=== PATIENT | male | born 1945 | race Caucasian/White ===

== ENCOUNTER 2021-11-03 14:15 | Inpatient (IN) | payer MEDICARE, SELFPAY ==
[2021-11-03 14:27] VITALS: BMI 34.4
--- NOTE | 2021-11-03 15:11 | PCM.HP.STD ---
Documented by User: Leann Rankin NP, AGRICULTURAL SPECIALIST-C 11/03/21 15:23 HPI - General General Date of Admission: 11/03/21 Date of Service: 11/03/21 Chief Complaint: Abdominal pain. HPI Narrative MAURILIO GOTTI, is a 76 M who presents from [facility] due to abdominal pain and nausea. Patient states this began Monday night. Patient was seen at that time and completed imaging. He was feeling improved and was discharged home however his symptoms again worsened and he returned to the emergency room for evaluation. He denies fever, chills. Reports right upper quadrant pain which radiates across his abdomen. Denies urinary symptoms. Denies other symptoms or complaints. He states he takes omeprazole for GERD. Denies other medical history. [facility] Medical History no medical history Allergy/AdvReac Type Severity Reaction Status Date / Time No Known Allergies Allergy Verified 11/03/21 16:25 Family History Mother Cancer Father Cancer Surgical History (Updated 11/03/21 @ 15:15 by Leann Rankin NP, AGRICULTURAL SPECIALIST-C) Previous back surgery Surgical History no surgical history Social History (Updated 11/03/21 @ 15:16 by Leann Rankin NP, AGRICULTURAL SPECIALIST-C) household members: spouse Smoking Status: Never smoker alcohol intake: never substance use type: does not use ROS Constitutional Constitutional: Denies change in weight, chills, fatigue, fever(s) or weakness Cardiovascular Cardiovascular: Denies chest pain, edema, lightheadedness, palpitations or syncope Respiratory/Chest Respiratory/Chest: Denies cough, dyspnea, productive cough, shortness of breath at rest, shortness of breath with exertion or wheezing Gastrointestinal Gastrointestinal: Reports abdominal pain and nausea; Denies constipation, diarrhea or vomiting Genitourinary Genitourinary: Denies burning urination, difficulty urinating, dysuria, hematuria, urinary frequency, urinary incontinence or urinary urgency Musculoskeletal Musculoskeletal: Denies back pain, joint pain or muscle weakness Integumentary Integumentary: Denies erythema, lesions, rash or wounds Neurologic Neurologic: Denies abnormal speech, confusion, dizziness, focal weakness, numbness, paresthesias, seizure-like activity or syncope Psychiatric Psychiatric: Denies anxiety or depression Hematologic/Lymphatic Hematologic/Lymphatic: Denies anemia, easy bleeding or easy bruising Allergic/Immunologic Allergic/Immunologic: Denies hives or asthma Vital Signs Vital Signs Vital Signs: 11/03/21 14:36 Respiratory Effort Normal Oxygen Delivery Method Room Air Weight Weight: 253 lb 15.56 oz Body Mass Index (BMI) 34.4 Physical Exam Const alert and oriented x3 HEENT normocephalic Mouth: dry mucous membranes Eyes PERRL, EOMs intact bilaterally and conjunctivae normal Neck no lymphadenopathy Resp normal respiratory effort and clear to auscultation bilaterally Cardio regular rate, regular rhythm and no murmurs Peripheral Pulses: pulses 2+ throughout GI normal to inspection, nondistended, normoactive bowel sounds and non-distended Palpation: tender RUQ Extremity normal to inspection Skin no rashes or lesions noted Lesions: no lesions Rashes: no rashes Trauma: no lacerations or abrasions Neuro CN's II-XII intact bilaterally, no focal motor deficits, no sensory deficits noted and deep tendon reflexes 2+ bilaterally Psych mental status grossly normal and affect normal Assessment & Plan Assessment/Plan (1) Gallstone pancreatitis: PLAN: Plan 1. Gallstone pancreatitis-gallbladder ultrasound at outside facility with gallbladder thickening and sludge. Alk phos 150. Lipase greater than 20,000. Bilirubin 2.5. Mild leukocytosis. No evidence of CBD dilation. IV Zosyn. Clear liquids. As needed pain regimen. As needed antiemetics. General surgery consult. Repeat labs in AM. 2. GERD- on omeprazole. DVT prophylaxis- Heparin sc This patient was seen by JITENDRA Aguayo under the supervision of Dr. Azevedo. Time spent examining patient, reviewing data and subsequent management of care: 26 minutes Documented by User: Dr. Keyur Azevedo DO 11/03/21 21:21 HPI - General General Date of Admission: 11/03/21 PFSH Medical History no medical history Allergy/AdvReac Type Severity Reaction Status Date / Time No Known Allergies Allergy Verified 11/03/21 16:25 Family History Mother Cancer Father Cancer Surgical History (Updated 11/03/21 @ 15:15 by Leann Rankin NP, AGRICULTURAL SPECIALIST-C) Previous back surgery Surgical History no surgical history Social History (Updated 11/03/21 @ 15:16 by Leann Rankin NP, AGRICULTURAL SPECIALIST-C) household members: spouse Smoking Status: Never smoker alcohol intake: never substance use type: does not use Assessment & Plan Assessment/Plan (1) Gallstone pancreatitis: Charges/Coding Addendum Addendum: Patient was seen and examined today independently of Leann Rankin, he was directly admitted to [place] [address] from a local hospital due to gallstone pancreatitis and acute cholecystitis. Patient states that he was seen at the emergency room on Monday for abdominal pain and nausea and vomiting, he was treated and released home but returned the next day due to persistent abdominal discomfort and nausea and vomiting. Work-up in the emergency room showed that the patient had a thickened gallbladder, ultrasound did not show evidence however of a dilated bile duct. Patient's lipase was elevated. On examination he appeared in good health and spirits. Vital signs as documented. Skin warm and dry and without overt rashes. Neck without JVD, neck was supple, trachea midline, thyroid was normal. Lungs clear bilaterally, normal air movement was noted. Heart exam notable for regular rhythm, normal sounds and absence of murmurs, rubs or gallops. Abdomen unremarkable and without evidence of organomegaly, masses, or abdominal aortic enlargement. Bowel sounds are present, abdomen is not distended. Extremities nonedematous, no cyanosis was noted, no clubbing was noted. Neuro: Cranial nerves II through XII are grossly intact, no focal motor deficits were noted, sensation to light touch and pinprick intact, motor exam 5/5 throughout. Psych: Patient is alert and oriented x3, he does not appear anxious or depressed, he does not appear agitated. Impression: #1 acute cholecystitis-patient was admitted to [place] [address], he will remain on IV antibiotics, he will be seen in consultation by general surgery. I talked with the patient and his who was in the room at the time of my examination today. #2 gallstone pancreatitis-there is no evidence of acute obstruction of the common bile duct on ultrasound, patient's liver enzymes are abnormal, lab will be repeated tomorrow morning and the patient will be evaluated by general surgery. Patient has no symptoms of abdominal discomfort at the time of my examination and his abdomen is soft and nondistended. Patient will remain on IV fluids and clear liquids. #3 GERD-patient will remain on a PPI I have reviewed Leann Rankin's history and physical including her medical assessment and plan of care and with the above additions endorse it. Total clinical time spent by myself addressing the patient's medical issues, reviewing the data, and collaborating with patient's care team: 48 minutes Visit Charges Inpatient E&M: 46634 Init Hosp L3
[2021-11-03] MEDS: 0.9% Normal Saline 1,000 ML 125 ML IV (16:18)
[2021-11-03] MEDS: Acetaminophen 325 MG Tablet 650 MG PO (17:34)
[2021-11-03 19:54] VITALS: BP 126/76; PULSE 67; RESP 18; TEMP 36.8; O2SAT 96
[2021-11-03] MEDS: Heparin Injection (Vial) 5,000 UNIT/ML VIAL 5000 UNIT SC (21:59)
[2021-11-04] VITALS (10 sets, daily range): BP systolic 129–179; BP diastolic 62–96; PULSE 57–71; RESP 16–18; TEMP 36.1–37.2; O2SAT 91–96; BMI 34.4
[2021-11-04] MEDS: 0.9% Normal Saline 1,000 ML 125 ML IV ×2 (02:27→10:23)
--- NOTE | 2021-11-04 06:00 | EKG12_ITS ---
Test Reason : PRE OP Blood Pressure : / mmHG Vent. Rate : 074 BPM Atrial Rate : 074 BPM P-R Int : 172 ms QRS Dur : 116 ms QT Int : 398 ms P-R-T Axes : 045 -32 033 degrees QTc Int : 441 ms Normal sinus rhythm Left axis deviation Abnormal ECG No previous ECGs available Confirmed by ADRY MCCORMACK, UNIQUE ([id number]), editorial intern LORI COLBERT ([id number]) on 11/05/2021 10:16:29 AM Referred By: WICHO Confirmed By:UNIQUE RIDER MD
[2021-11-04 06:09] LABS: Absolute Lymphocyte Count 1.39 X10^3/uL (0.83-4.51); Absolute Neutrophil Count 9.4 X10^3/uL (2.0-7.7); Basophil# 0.04 X10^3/uL; Basophil% 0.3 % (0-1); Eosinophil# 0.21 X10^3/uL; Eosinophils% 1.7 % (0-5); Hemoglobin 12.7 g/dL (13.0-16.5); Lymphocyte # 1.39 X10^3/ul (0.83-4.51); Lymphocyte % 11.2 % (19-41); Mean Corp Hgb Conc 33.4 g/dL (32-36); Mean Corpuscular Hgb 30.8 pg (27.0-32.0); Mean Platelet Vol. 9.8 fl (6.2-12.0); Monocyte# 1.31 X10^3/uL; Monocyte% 10.5 % (0-10); NRBC Flagged by Analyzer 0 % (0-5); Neutrophil # 9.44 X10^3/uL (2.7-7.7); Platelet Count 168 K/mm3 (150-450); RBC Distribution Width CV 14.5 % (11.6-14.6); Red Blood Count 4.13 M/mm3 (4.6-6.2); White Blood Count 12.4 K/mm3 (4.4-11.0)
[2021-11-04 06:17] LABS: Partial Thromboplast Time 31.6 Seconds (24.1-36.2)
[2021-11-04 06:38] LABS: ALB/GLOB Ratio 0.9 RATIO (0.9-2.4); AST(SGOT) 197 U/L (15-37); Alanine Aminotransfer ALT/SGPT 226 U/L (16-61); Albumin, Serum 2.7 g/dL (3.2-5.0); Alkaline Phosphatase 144 U/L (45-117); Anion Gap 6 (5-15); BUN 12 mg/dL (7-18); BUN/Creat Ratio 12.9 RATIO (10-20); Chloride 111 mmol/L (98-107); Creatinine, Serum 0.93 mg/dL (0.70-1.30); EST Glomerular Filtration Rate 84 mL/min (>60); Est Glom Filt Rate - Afr Amer 101 mL/min (>60); Estimated Creatinine Clearance 73.01 ml/min; Globulin 2.9 g/dL (2.2-4.2); Glucose 100 mg/dL (74-106); Lipase 215 U/L (73-393); Potassium 3.8 mmol/L (3.5-5.1); Protein, Total 5.6 g/dL (6.4-8.2); Sodium Level 140 mmol/L (136-145)
--- NOTE | 2021-11-04 07:44 | PN.HOSP_ITS ---
Subjective Subjective Feels good. No further abdominal pain. Complains of dark red urine. Objective Data Objective Data Vital Signs: Vital Signs Temp Pulse Resp BP Pulse Ox O2 Del Method 36.8 C 68 18 129/69 H 93 Room Air 11/04/21 02:22 11/04/21 02:22 11/04/21 02:22 11/04/21 02:22 11/04/21 02:22 11/04/21 02:22 Oxygen Delivery Method Room Air Weight: 115.2 kg Body Mass Index (BMI) 34.4 Intake & Output: Intake and Output for Last 24 Hours 11/02/21 11/03/21 11/04/21 23:59 23:59 23:59 Intake Total 50 / 50 1300 / 1300 Balance 50 / 50 1300 / 1300 Lab / Micro Data Result Diagrams: 11/04/21 05:59 11/04/21 05:59 Labs: Laboratory Results - last 24 hr 11/04/21 05:59: WBC 12.4 H, RBC 4.13 L, Hgb 12.7 L, Hct 38.0 L, MCV 92.0, MCH 30.8, MCHC 33.4, RDW Std Deviation 49.0 H, RDW Coeff of Shauna 14.5, Plt Count 168, MPV 9.8, Immature Gran % (Auto) 0.300, Neut % (Auto) 76.0 H, Lymph % (Auto) 11.2 L, [place] % (Auto) 10.5 H, Eos % (Auto) 1.7, Baso % (Auto) 0.3, Absolute Neuts (auto) 9.4 H, Absolute Lymphs (auto) 1.39, Nucleated RBC % 0 11/04/21 05:59: Sodium 140, Potassium 3.8, Chloride 111 H, Carbon Dioxide 23.0, Anion Gap 6, BUN 12, Creatinine 0.93, Estim Creat Clear Calc 73.01, Est GFR (MDRD) Af Amer 101, Est GFR (MDRD) Non-Af 84, BUN/Creatinine Ratio 12.9, Glucose 100, Calcium 8.0 L, Total Bilirubin 7.10 H, AST 197 H, ALT 226 H, Alkaline Phosphatase 144 H, Total Protein 5.6 L, Albumin 2.7 L, Globulin 2.9, Albumin/Globulin Ratio 0.9, Lipase 215 11/04/21 05:59: APTT 31.6 Physical Exam HEENT head/scalp atraumatic Resp normal respiratory effort and no retractions Cardio regular rate, regular rhythm, S1 normal heart sound and S2 normal heart sound GI normal to inspection, nondistended, normoactive bowel sounds and soft to palpation GI Narrative: negative wilson's sign. Psych affect normal Assessment & Plan Assessment/Plan (1) Gallstone pancreatitis: PLAN: Gallstone pancreatitis-gallbladder ultrasound at outside facility with gallbladder thickening and sludge. Alk phos 150. Lipase at outside hospital greater than 20,000. Now 215. Bilirubin 2.5, now up to 7.1 General surgery consult. (2) Acute cholecystitis: PLAN: on piperacillin/tazobactam general surgery consult PLAN: Plan chronic conditions: * GERD- on omeprazole. DVT prophylaxis- Heparin sc Charges/Coding Visit Charges Inpatient E&M: 10692 Subs Hosp L2
--- NOTE | 2021-11-04 08:05 | EX.PCM.CON.S ---
Assessment & Plan Assessment/Plan (1) Gallstone pancreatitis: (2) Acute cholecystitis: PLAN: Plan Patient had gallstone pancreatitis at outside hospital. His LFTs are more elevated today than they were yesterday. His bilirubin is 7 today with elevations in his AST and ALT. With increases of his LFTs I would recommend ERCP before laparoscopic cholecystectomy. I have consulted GI to perform ERCP this afternoon. As long as all goes well I will plan for laparoscopic cholecystectomy with cholangiogram tomorrow morning. I discussed laparoscopic cholecystectomy with cholangiogram in detail with the patient. I discussed the risks, benefits, and alternatives of the procedure. I discussed the risks including but not limited to bleeding, infection, injury to surrounding organs such as the liver, bile duct, bowels. I did discuss the possibility of having to convert to an open procedure as well as the possibility that if any injuries occurred this may necessitate further surgery at a tertiary care center. Roderick Amado MD Pager: [facility] [address] [place] [address], [address] [place] [address] Office: HPI Consult Data Date of Consult: 11/04/21 HPI Narrative HPI Narrative: MAURILIO GOTTI, is a 76 M who was transferred from outside hospital with gallstone pancreatitis. Patient said that he started having pain off and on about last week. He says that it came back again last night and is a problem to the emergency room. He describes pain in his upper abdominal area. It does not radiate and he did not have any fevers or chills. He did also have nausea and vomiting. [facility] Medical History no medical history Allergy/AdvReac Type Severity Reaction Status Date / Time No Known Allergies Allergy Verified 11/03/21 16:25 Family History Mother Cancer Father Cancer Surgical History (Updated 11/03/21 @ 15:15 by Leann Rankin NP, LEVEE SUPERINTENDENT-C) Previous back surgery Surgical History no surgical history Social History (Updated 11/03/21 @ 15:16 by Leann Rankin NP, LEVEE SUPERINTENDENT-C) household members: spouse Smoking Status: Never smoker alcohol intake: never substance use type: does not use ROS Constitutional Constitutional: Denies anorexia, fatigue or fever(s) Eyes Eyes: Denies blurry vision ENT HEENT: Denies abnormal hearing Cardiovascular Cardiovascular: Denies chest pain Respiratory/Chest Respiratory/Chest: Denies cough or dyspnea Gastrointestinal Gastrointestinal: Reports abdominal pain, nausea and vomiting; Denies coffee ground emesis, constipation, diarrhea or melena Genitourinary Genitourinary: Denies change in urinary stream Musculoskeletal Musculoskeletal: Denies abnormal gait Integumentary Integumentary: Denies jaundice Neurologic Neurologic: Denies dizziness Psychiatric Psychiatric: Denies anxiety Endocrine Endocrinology: Denies heat intolerance Hematologic/Lymphatic Hematologic/Lymphatic: Denies easy bleeding Physical Exam Const alert and oriented x3 General Appearance: cooperative HEENT normocephalic Eyes PERRL Chest inspection of chest normal Resp normal respiratory effort Cardio Rate: regular rate Rhythm: regular rhythm GI soft to palpation, non-tender and non-distended Extremity normal to inspection Neuro CN's II-XII intact bilaterally Psych mental status grossly normal Lab / Micro Data Result Diagrams: 11/04/21 05:59 11/04/21 05:59 Labs: Laboratory Results - last 24 hr 11/04/21 05:59: WBC 12.4 H, RBC 4.13 L, Hgb 12.7 L, Hct 38.0 L, MCV 92.0, MCH 30.8, MCHC 33.4, RDW Std Deviation 49.0 H, RDW Coeff of Shauna 14.5, Plt Count 168, MPV 9.8, Immature Gran % (Auto) 0.300, Neut % (Auto) 76.0 H, Lymph % (Auto) 11.2 L, [place] % (Auto) 10.5 H, Eos % (Auto) 1.7, Baso % (Auto) 0.3, Absolute Neuts (auto) 9.4 H, Absolute Lymphs (auto) 1.39, Nucleated RBC % 0 11/04/21 05:59: Sodium 140, Potassium 3.8, Chloride 111 H, Carbon Dioxide 23.0, Anion Gap 6, BUN 12, Creatinine 0.93, Estim Creat Clear Calc 73.01, Est GFR (MDRD) Af Amer 101, Est GFR (MDRD) Non-Af 84, BUN/Creatinine Ratio 12.9, Glucose 100, Calcium 8.0 L, Total Bilirubin 7.10 H, AST 197 H, ALT 226 H, Alkaline Phosphatase 144 H, Total Protein 5.6 L, Albumin 2.7 L, Globulin 2.9, Albumin/Globulin Ratio 0.9, Lipase 215 11/04/21 05:59: APTT 31.6
--- NOTE | 2021-11-04 09:00 | CON.PCM_ITS ---
Assessment & Plan Assessment/Plan (1) Acute cholecystitis: PLAN: He is scheduled for cholecystectomy tomorrow. I will give him a clinical diet after the procedure and he will be n.p.o. after midnight. (2) Gallstone pancreatitis: PLAN: At this time is not have any abdominal pain. Recommended continue IV fluids and n.p.o. for acute gallstone pancreatitis. (3) Jaundice: PLAN: The presumptive diagnosis is choledocholithiasis causing an acute worsening of jaundice. We will perform ERCP with evaluation of his hepatobiliary tree and possibly place a stent. He was explained alternatives, risk, benefits including outstanding bleeding, infection, sepsis, perforation, need for emergent . Have an ASA of 3. HPI Consult Data Date of Consult: 11/04/21 HPI Narrative HPI Narrative: MAURILIO GOTTI, is a 76 M who presents from [facility] due to abdominal pain and nausea. Patient states this began Monday night.? Patient was seen at that time and completed imaging.? He was feeling improved and was discharged home however his symptoms again worsened and he returned to the emergency room for evaluation.? He denies fever, chills.? He reports right upper quadrant pain which radiates across his abdomen. Denies urinary symptoms. Denies other symptoms or complaints.? He states he takes omeprazole for GERD.? Denies other medical history. Today he was noted to have an increase in his bilirubin and LFTs. I was consulted in order to perform ERCP prior to cholecystectomy. All other 16 review of systems are negative except as per body mentioned HPI. PFSH Medical History no medical history Allergy/AdvReac Type Severity Reaction Status Date / Time No Known Allergies Allergy Verified 11/03/21 16:25 Family History Mother Cancer Father Cancer Surgical History (Updated 11/03/21 @ 15:15 by Leann Rankin NP, DEAN OF STUDENT SERVICES-C) Previous back surgery Surgical History no surgical history Social History (Updated 11/03/21 @ 15:16 by Leann Rankin NP, DEAN OF STUDENT SERVICES-C) household members: spouse Smoking Status: Never smoker alcohol intake: never substance use type: does not use ROS Constitutional Constitutional: Denies anorexia, fatigue or fever(s) Eyes Eyes: Denies blurry vision ENT HEENT: Denies abnormal hearing Cardiovascular Cardiovascular: Denies chest pain Respiratory/Chest Respiratory/Chest: Denies cough or dyspnea Gastrointestinal Gastrointestinal: Reports abdominal pain, nausea and vomiting; Denies coffee ground emesis, constipation, diarrhea or melena Genitourinary Genitourinary: Denies change in urinary stream Musculoskeletal Musculoskeletal: Denies abnormal gait Integumentary Integumentary: Denies jaundice Neurologic Neurologic: Denies dizziness Psychiatric Psychiatric: Denies anxiety Endocrine Endocrinology: Denies heat intolerance Hematologic/Lymphatic Hematologic/Lymphatic: Denies easy bleeding Physical Exam Const alert and oriented x3 General Appearance: cooperative HEENT normocephalic Eyes PERRL Chest inspection of chest normal Resp normal respiratory effort Cardio Rate: regular rate Rhythm: regular rhythm GI soft to palpation, non-tender and non-distended Extremity normal to inspection Neuro CN's II-XII intact bilaterally Psych mental status grossly normal Lab / Micro Data Result Diagrams: 11/04/21 05:59 11/04/21 05:59 Labs: Laboratory Results - last 24 hr 11/04/21 05:59: WBC 12.4 H, RBC 4.13 L, Hgb 12.7 L, Hct 38.0 L, MCV 92.0, MCH 30.8, MCHC 33.4, RDW Std Deviation 49.0 H, RDW Coeff of Shauna 14.5, Plt Count 168, MPV 9.8, Immature Gran % (Auto) 0.300, Neut % (Auto) 76.0 H, Lymph % (Auto) 11.2 L, [place] % (Auto) 10.5 H, Eos % (Auto) 1.7, Baso % (Auto) 0.3, Absolute Neuts (auto) 9.4 H, Absolute Lymphs (auto) 1.39, Nucleated RBC % 0 11/04/21 05:59: Sodium 140, Potassium 3.8, Chloride 111 H, Carbon Dioxide 23.0, Anion Gap 6, BUN 12, Creatinine 0.93, Estim Creat Clear Calc 73.01, Est GFR (MDRD) Af Amer 101, Est GFR (MDRD) Non-Af 84, BUN/Creatinine Ratio 12.9, Glucose 100, Calcium 8.0 L, Total Bilirubin 7.10 H, AST 197 H, ALT 226 H, Alkaline Phosphatase 144 H, Total Protein 5.6 L, Albumin 2.7 L, Globulin 2.9, Albumin/Globulin Ratio 0.9, Lipase 215 11/04/21 05:59: APTT 31.6 Charges/Coding Visit Charges Inpatient E&M: 25302 Init Hosp L3
[2021-11-04] MEDS: Acetaminophen 325 MG Tablet 650 MG PO (10:33)
--- NOTE | 2021-11-04 11:20 | CASEMGMT ---
RN YAHAIRA GATE OPERATOR CM to room to meet with patient for initial transition planning/care coordination assessment. RN YAHAIRA introduced self and role at [facility]. Pt voices understanding and consents to assessment at this time. Pt resting in bed in no distress at this time. Pt is A/O at this time and answers all questions appropriately. Care providers, pharmacy, and demographics verified/updated at this time. PCP: Dr Elaine Specialists: none Preferred Pharmacy: [facility] retail Insurance: [employer] Prescription Benefit: Yes Living Will/HPOA: Pt does not currently have LW/HCPOA and declines info. LNOK: , Tammy Living Arrangements: Lives w/ and dtr in one-story home w/one step to enter. Independent. Transportation: Pt states drives self and states no transportation concerns at this time. also drives DME: Denies using any DME and denies needs. HHC/SNF: No history of either. No needs identified. Pt wishes to return home and states has no concerns with going home at time of discharge. CM to follow for any discharge planning/needs. Pt voices no concerns/needs at this time. Advised pt to ask for CM if any questions/concerns/needs arise. Voices understanding. PLAN: Home w/family support and discharge plans in place. [place] BYRD RN, CM
--- NOTE | 2021-11-04 16:27 | CHAPLAIN ---
Type of Pastoral Visit _x__ Initial Visit ___ Follow-up Visit ___ On-call Visit ___ General Patient Visit ___ Spiritual Assessment ___ Family Conference ___ Bereavement ___ Rapid Response ___ Code Blue ___ Other (describe below) Pastoral Care Referral From _x__ Patient ___ Family ___ Nurse ___ Physician ___ Pricing Consultant ___ [place] Instructor ___ Other (describe below) Sacrament/Intervention _x__ Active listening ___ Anointing ___ Taoist ___ Bereavement ___ Communion ___ Ciarra exploration ___ ___ Life review _x__ Prayer ___ Reconciliation ___ Sacrament of Sick ___ Supportive presence ___ Wedding ___ Other (describe below) Pastoral Comments patient welcomes prayer support prior to surgery; pt states this is first time in hospital and so expresses gratefulness; pt has a synagogue connection and ciarra is important to him
--- NOTE | 2021-11-04 17:00 | RAD_ITS ---
CLINICAL HISTORY: PAIN Date: 11/04/2021 5:13 PM Date of : 1945 Images assigned to this order were provided in conjunction with an ERCP procedure performed in the operating room/procedural suite. Please see operative report for details. Fluoroscopic images: 8 Fluoroscopic time: 71.3 seconds Cumulative dose: 1.59, mGym2; 51.30; mGy Imaging documents retrograde access to the biliary ductal system. Findings consistent with balloon sweep and placement of a stent in normal position. Refer to procedural note for complete description. IMPRESSIONS: 1. Fluoroscopic guidance for procedural planning and confirmation. Opacification of the biliary ductal system, apparent balloon sweep performed, and biliary stent placed in normal position. Electronically Signed: Bala Johnson MD at 18:36 EDT , RAD/ERCP Biliary Only IMPRESSION: undefined
--- NOTE | 2021-11-04 17:44 | OP.ERCP_ITS ---
Patient Name: Bola Small Procedure Date: 11/04/2021 4:30 PM Date of : 1945 Age: 76 Procedure: ERCP Indications: Bile duct stone(s), Suspected ascending cholangitis, Jaundice, Elevated liver enzymes Providers: Renny Roberts DO Medicines: Monitored Anesthesia Care Patient Profile: This is a 76 year old male. Refer to note in patient chart for documentation of history and physical. Patient has symptoms of acute right upper quadrant abdominal pain and acute jaundice. This patient has no history of previous ERCP. Complications: No immediate complications. Procedure: Pre-Anesthesia Assessment: - Prior to the procedure, a History and Physical was performed, and patient medications and allergies were reviewed. The patient is competent. The risks and benefits of the procedure and the sedation options and risks were discussed with the patient. All questions were answered and informed consent was obtained. Patient identification and proposed procedure were verified by the physician in the pre-procedure area. Mental Status Examination: alert and oriented. Airway Examination: normal oropharyngeal airway and neck mobility. Respiratory Examination: clear to auscultation. CV Examination: normal. Prophylactic Antibiotics: The patient does not require prophylactic antibiotics. Prior Anticoagulants: The patient has taken no previous anticoagulant or antiplatelet agents. ASA Grade Assessment: III - A patient with severe systemic disease. After reviewing the risks and benefits, the patient was deemed in satisfactory condition to undergo the procedure. The anesthesia plan was to use monitored anesthesia care (MAC). Immediately prior to administration of medications, the patient was re-assessed for adequacy to receive sedatives. The heart rate, respiratory rate, oxygen saturations, blood pressure, adequacy of pulmonary ventilation, and response to care were monitored throughout the procedure. The physical status of the patient was re-assessed after the procedure. After obtaining informed consent, the scope was passed under direct vision. Throughout the procedure, the patient's blood pressure, pulse, and oxygen saturations were monitored continuously. The Duodenoscope was introduced through the mouth, and advanced to the duodenum and used to inject contrast into the bile duct. The ERCP was accomplished without difficulty. The patient tolerated the procedure well. Scope In: 5:04:46 PM Scope Out: 5:32:23 PM Total Procedure Duration Time 0 hours 27 minutes 37 seconds Findings: The business control specialist film was normal. The esophagus was successfully intubated under direct vision. The scope was advanced to a normal major papilla in the descending duodenum without detailed examination of the pharynx, larynx and associated structures, and upper GI tract. The upper GI tract was grossly normal. The bile duct was deeply cannulated with the short-nosed traction sphincterotome. Contrast was injected. I personally interpreted the bile duct images. There was brisk flow of contrast through the ducts. Image quality was excellent. Contrast extended to the entire biliary tree. Opacification of the entire opacified area and main bile duct was successful. The maximum diameter of the ducts was 5 mm. The lower third of the main bile duct contained a single localized stenosis 3 mm in length. A straight Roadrunner wire was passed into the biliary tree. A 5 mm biliary sphincterotomy was made with a traction (standard) sphincterotome using ERBE electrocautery. Moderate bleeding from the sphincterotomy stopped within 5 minutes. The biliary tree was swept with a 12 mm balloon starting at the bifurcation. Sludge was swept from the duct. All stones were removed. Dilation of the common bile duct with a 6-7-8 mm balloon (to a maximum balloon size of 8 mm) dilator was successful. One 10 Fr by 7 cm temporary stent was placed 5 cm into the common bile duct. Bile flowed through the stent. The stent was in good position. The upper GI tract was traversed under direct vision without detailed examination. A 5 mm non-bleeding diverticulum was found in the area of the papilla. Impression: - Non-bleeding duodenal diverticulum. - A single localized biliary stricture was found in the lower third of the main bile duct. The stricture was indeterminate. - Choledocholithiasis was found. Complete removal was accomplished by biliary sphincterotomy and balloon extraction. - A biliary sphincterotomy was performed. - The biliary tree was swept. - Common bile duct was successfully dilated. - One temporary stent was placed into the common bile duct. Procedure Code(s): --- Professional --- 47351, Endoscopic retrograde cholangiopancreatography (ERCP); with placement of endoscopic stent into biliary or pancreatic duct, including pre- and post-dilation and guide wire passage, when performed, including sphincterotomy, when performed, each stent 81765, Endoscopic retrograde cholangiopancreatography (ERCP); with removal of calculi/debris from biliary/pancreatic duct(s) 83523, 26, Endoscopic catheterization of the biliary ductal system, radiological supervision and interpretation CPT copyright 2017 [employer]. All rights reserved. The codes documented in this report are preliminary and upon senior marketing specialist review may be revised to meet current compliance requirements. Renny Roberts DO 11/04/2021 5:43:46 PM This report has been signed electronically. Number of Addenda: 0 Note Initiated On: 11/04/2021 4:30 PM
[2021-11-04] MEDS: 0.9% Normal Saline 1,000 ML 200 ML IV (20:36)
[2021-11-04] MEDS: Heparin Injection (Vial) 5,000 UNIT/ML VIAL 5000 UNIT SC (22:03)
[2021-11-05] VITALS (19 sets, daily range): BP systolic 140–195; BP diastolic 62–96; PULSE 60–83; RESP 15–18; TEMP 36.4–37.1; O2SAT 90–99; BMI 34.4
--- NOTE | 2021-11-05 | LIVB_PTH ---
PATIENT: MAURILIO GOTTI LOC: MS3 U#:[id number] AGE/SX: 76/M ROOM: MA317 RE11/03/[address]: Dr. Philip Steven DO : 1945 BED: 1 DIS: 11/07/2021 SPEC #: [id number] RECD: 11/05/21 09:45 STATUS: MARTINA VERDINJack #: [id number] MERVAT: 11/05/21 00:[address]: Roderick Amado DEPT: SURGICAL PATHOLOGY RECD BY: Roxanne Ervin ENTERED: 11/05/21 10:14 SP TYPE: LIVER BX OTHR DR: DO Dr. Keyur Cortez DO Dr. Yasser Omran, MD Tissues: A - Liver, NOS B - Gallbladder, NOS Procedures: Decalcification bone/plaque Surgery Specimen Level III Surgery Specimen Level V HEADER OPERATION: Laparoscopic cholecystectomy with IOC, excision of liver mass PRE-OP DIAGNOSIS: Gallstone pancreatitis, acute cholecystitis TISSUE SUBMITTED: A ? Liver biopsy, left, B - Gallbladder MICROSCOPIC DIAGNOSIS A. Liver mass, excision: Calcified cystic fibrous nodule. Negative for malignancy. B. Gallbladder, cholecystectomy: Chronic cholecystitis. Rokitansky-Aschoff sinuses at the fundus. SJ:kaiden 11/10/2021 COMMENT No stones are identified in the container or in the gallbladder. Case has been reviewed in consultation with Dr. Lopez who concurs with the above diagnosis. IDC:AM MICROSCOPIC DESCRIPTION Slides are reviewed. GROSS DESCRIPTION A - Received fresh for frozen section diagnosis labeled with the patient's name is a specimen designated liver biopsy. The specimen consists of a piece of solid, rock-like nodule measuring 1.5 x 1.5 x 1 cm. Frozen section was canceled after talking to the surgeon, Dr. Amado. The specimen is serially sectioned and reveals cystic cut surface without any contents and submitted entirely in one cassette after decalcification. / RUBEN:kaiden 11/05/2021 B - Received is one container labeled with the patient's name and designated gallbladder. The specimen consists of a gallbladder measuring 8.5 cm in length and up to 3.5 cm in diameter. The external surface is pink-khan, smooth and glistening for the most part. Focally it is granular, hemorrhagic and contains cautery artifact. The gallbladder contains green-yellow mucoid bile. No stones are identified in the container or in the gallbladder. A small amount of sludge material is noted. A multiloculated cystic mass is noted at the fundus measuring 1 x 1 x 1 cm. The mucosa is bile-stained and without any mass lesions. The gallbladder wall measures up to 0.7 cm in thickness. Explosive Ordnance Disposal Manager sections are submitted in three cassettes as follows: 1 - gallbladder, 2 & 3 - entire cystic mass at the fundus. / RUBEN:kaiden 11/08/2021 TC:5 CPT: 94940, 15764, 07717
[2021-11-05] MEDS: 0.9% Normal Saline 1,000 ML 200 ML IV ×5 (01:41→21:17)
--- NOTE | 2021-11-05 08:16 | PN.HOSP_ITS ---
Subjective Subjective Complains of right shoulder pain post-op. Objective Data Objective Data Vital Signs: Vital Signs Temp Pulse Resp BP Pulse Ox O2 Del Method O2 Flow Rate 37.1 C 62 18 165/80 H 93 Room Air 2 11/05/21 07:07 11/05/21 07:07 11/05/21 07:07 11/05/21 07:07 11/05/21 07:07 11/05/21 07:07 11/04/21 19:05 Oxygen Flow Rate (L/min) 2 Oxygen Delivery Method Room Air Weight: 115.2 kg Body Mass Index (BMI) 34.4 Intake & Output: Intake and Output for Last 24 Hours 11/03/21 11/04/21 11/05/21 23:59 23:59 23:59 Intake Total 50 3391.67 / 3631.67 2286.67 / 2286.67 Balance 50 50 3391.67 / 3631.67 2286.67 / 2286.67 Lab / Micro Data Result Diagrams: 11/04/21 05:59 11/04/21 05:59 Radiography Diagnostic Testing: Radiology Impression ERCP X-Ray 11/04/21 17:00 IMPRESSION: undefined Physical Exam Const Constitutional Narrative: groggy. afebrile. Resp normal respiratory effort and no retractions Cardio regular rate, regular rhythm, S1 normal heart sound and S2 normal heart sound GI GI Narrative: distended. NT. hypoactive BS. Extremity normal to inspection Psych affect normal Assessment & Plan Assessment/Plan (1) Gallstone pancreatitis: PLAN: Gallstone pancreatitis-gallbladder ultrasound at outside facility with gallbladder thickening and sludge. Alk phos 150. Lipase at outside hospital greater than 20,000. Now 215. Bilirubin 2.5, now up to 7.1 General surgery consult. ERCP 11/04:Complete removal was accomplished by biliary sphincterotomy and balloon extraction. A biliary sphincterotomy was performed. The biliary tree was swept.Common bile duct was successfully dilated. One temporary stent was placed into the common bile duct. (2) Acute cholecystitis: PLAN: on piperacillin/tazobactam general surgery consult cholecystectomy 11/05 with removal of hepatic mass (sent to pathology) PLAN: Plan chronic conditions: * GERD- on omeprazole. DVT prophylaxis- Heparin sc Charges/Coding Visit Charges Inpatient E&M: 92807 Subs Hosp L2
--- NOTE | 2021-11-05 08:55 | RAD_ITS ---
STUDY: INTRAOPERATIVE CHOLANGIOGRAM. REASON FOR EXAM: Male, 76 years old. LAPAROSCOPIC, CHOLECYSTECTOMY WITH IOC FLUOROSCOPY TIME (if supplied): ( 27.8 seconds ) minutes/seconds. A cine loop loop of 139 images images was submitted. TECHNIQUE: An intraoperative glandular was performed by the surgeon. Imaging was obtained. COMPARISON: None. FINDINGS: A biliary stent is seen within the common bile duct. No flow of contrast is seen within the common bile duct. RAD/Cholangiogram/ O R,Initial IMPRESSION: Biliary stent is seen in the common bile duct. Electronically Signed: Avelino Friend MD at 9:42 EDT ,
[2021-11-05] MEDS: Bupivacaine 0.25% 30 ML Vial (09:45)
--- NOTE | 2021-11-05 09:54 | OP.PCM_ITS ---
Report of Operation Date of Procedure: 11/05/21 Pre-Operative Diagnosis: Acute cholecystitis and gallstone pancreatitis Post-Operative Diagnosis: 1. Acute cholecystitis 2. Gallstone pancreatitis 3. Liver mass Surgery/Procedure Performed:: 1. Laparoscopic cholecystectomy with cholangiogram 2. Excision of liver mass Description of Surgical Findings:: Very firm mass medial to the gallbladder in the liver Specimen's removed: 1. Gallbladder 2. Liver mass Description of Procedure: After obtaining informed consent patient was brought back to the operating room. General anesthesia was induced. The abdomen was prepped and draped in usual sterile fashion. A small midline incision was made superior to the umbilicus and deepened to the level of fascia. The fascia was elevated and incised. Next the peritoneum was elevated and incised in the same fashion. Finger sweep was performed and the Mcrae trocar was placed into the abdomen. The balloon was inflated. The abdomen was inflated to 15 mmHg. Next a camera was introduced into the abdomen and the abdomen was inspected. Next under direct visualization three 5-mm ports were placed one subxiphoid and 2 subcostal. Next the gallbladder was elevated and retracted toward the right shoulder. The peritoneum was stripped from the gallbladder. The infundibulum was located and retracted laterally. Next the triangle of Calot was dissected and the cystic duct and cystic artery were identified. Cholangiograms were performed. The Lu clamp was used to clamp across the infundibulum and the catheter needle was inserted into the gallbladder. Under fluoroscopy contrast was instilled into the gallbladder and the common duct, cystic duct as well as proximal hepatic ducts were identified. There was good filling of the duodenum. There were no filling defects noted in the common bile duct. The clamp was removed as well as the needle and the infundibulum was grasped once more. Three hemolock c lips were placed across the cystic duct. The cystic duct was then divided leaving 2 clips on the stump. The cystic artery was clipped and divided in the same fashion. The hook cautery was then used to take the gallbladder off of the gallbladder bed. Hemostasis was obtained. The liver mass was just medial to the gallbladder fossa. It did not appear to communicate with the gallbladder and there was a good plane of fat between the gallbladder and this mass. The mass was grasped and excised using electrocautery to remove it and dissected free from the liver. It was sent for pathology. Gallbladder fossa was irrigated and no active bleeding or bile leakage was noted. Next the camera was introduced in the subxiphoid port. An Endopouch bag was placed through the umbilical port and the gallbladder was placed into it. The gallbladder was then removed through the umbilical incision. The camera was then reinserted through the umbilical port. The gallbladder fossa was inspected once more and noted to be hemostatic with no leaking bile. The abdomen was suctioned dry. The 5 mm ports were removed under direct visualization. The umbilical port was then removed and the air was removed from the abdomen. Next using an 0 Vicryl suture the umbilical fascia was closed in a [id number] fashion. The umbilical port site was irrigated local anesthetic was administered to all the incisions. All the incisions were closed with interrupted subcuticular 4-0 Monocryl sutures followed by Steri-Strips and dressings. The patient was awoken and taken to PACU in stable condition. Admit VTE Documentation VTE Mechan Device Prophylaxis: SCD's
--- NOTE | 2021-11-05 09:57 | DCINST_ITS ---
Discharge Instructions Diet Discharge Diet: Light diet - advance as tolerated Activity Discharge Activity: May Not Drive (for 2-3 days or while on narcotics) and May Shower (tomorrow) Lifting Restrictions: 15 lbs for 2 weeks Dressing / Incision Call your doctor if your incision/area has: Continuous Slow Oozing, Sudden Increased Bleeding, Increased Pain/ Swelling, Increased Redness, Foul Smelling Discharge and Swelling at the incision site Call your doctor if you observe: Fever of 101 or Higher Remove Dressing in: 2 days (Remove bandage in 2 days, remove Steri-Strips in 7 to 10 days.) Cleanse incision/area with: Soap & Water Follow Up Care Please Follow Up With: Roderick Amado MD When: Please call to schedule 2 week follow up appointment. [phone] Test Results: Test results from this visit will be discussed in further detail at your follow- up appointment, if applicable. Discharge Plan Admission Admit Date/Time: 11/03/21 15:22 Attending Provider: Philip Steven Primary Care Provider: Je Elaine Consulting Providers: Roderick Amado ; Keyur Azevedo Discharge Orders/Prescriptions Referrals / Follow Up: Je Elaine MD [Primary Care Provider] -
--- NOTE | 2021-11-05 11:34 | NURSING ---
Pt was already off the floor this morning before 0730.
[2021-11-05] MEDS: Morphine 2 MG/ML Syringe IV (13:23)
[2021-11-05] MEDS: 0.9% Saline Lock 10 ML Syringe IV (13:24)
[2021-11-05] MEDS: Acetaminophen 325 MG Tablet 650 MG PO (16:29)
[2021-11-05] MEDS: Lisinopril 20 MG Tablet PO (17:21)
[2021-11-05] MEDS: Heparin Injection (Vial) 5,000 UNIT/ML VIAL 5000 UNIT SC (20:59)
[2021-11-06 01:44] VITALS: BP 144/76; PULSE 78; RESP 18; TEMP 36.8; O2SAT 93
[2021-11-06] MEDS: 0.9% Normal Saline 1,000 ML 200 ML IV ×2 (02:18→07:25)
[2021-11-06 05:44] VITALS: BP 162/77; PULSE 78; RESP 16; TEMP 37.1; O2SAT 96
[2021-11-06 06:14] LABS: Absolute Lymphocyte Count 2.33 X10^3/uL (0.83-4.51); Absolute Neutrophil Count 16.1 X10^3/uL (2.0-7.7); Basophil# 0.04 X10^3/uL; Basophil% 0.2 % (0-1); Eosinophil# 0.01 X10^3/uL; Hematocrit 38.9 % (40-54); Hemoglobin 12.7 g/dL (13.0-16.5); Lymphocyte # 2.33 X10^3/ul (0.83-4.51); Lymphocyte % 11.5 % (19-41); Mean Corp Hgb Conc 32.6 g/dL (32-36); Mean Corpuscular Hgb 30.2 pg (27.0-32.0); Mean Corpuscular Volume 92.6 fL (80-94); Mean Platelet Vol. 9.8 fl (6.2-12.0); Monocyte# 1.66 X10^3/uL; Monocyte% 8.2 % (0-10); NRBC Flagged by Analyzer 0 % (0-5); Neutrophil # 16.06 X10^3/uL (2.7-7.7); Neutrophil % 79.1 % (47-70); POSITIVE DIFFERENTIAL YES; Platelet Count 221 K/mm3 (150-450); RBC Distribution Width SD 50.9 fl (35.1-43.9); White Blood Count 20.3 K/mm3 (4.4-11.0)
[2021-11-06 06:32] LABS: Differential Indicated SCAN CRITERIA MET
[2021-11-06 06:49] LABS: Differential Comment SCANNED
[2021-11-06 06:51] LABS: Anion Gap 5 (5-15); BUN 14 mg/dL (7-18); BUN/Creat Ratio 19.6 RATIO (10-20); Calcium,Total 8.1 mg/dL (8.5-10.1); Chloride 112 mmol/L (98-107); Creatinine, Serum 0.72 mg/dL (0.70-1.30); EST Glomerular Filtration Rate 113 mL/min (>60); Est Glom Filt Rate - Afr Amer 137 mL/min (>60); Glucose 100 mg/dL (74-106); Sodium Level 140 mmol/L (136-145)
--- NOTE | 2021-11-06 07:16 | PN.HOSP_ITS ---
Subjective Subjective Positive flatus. Notes swelling in upper extremities. Feels short of breath but on room air. Objective Data Objective Data Vital Signs: Vital Signs Temp Pulse Resp BP Pulse Ox O2 Del Method O2 Flow Rate 37.1 C 78 16 162/77 H 96 Nasal Cannula 2 11/06/21 05:44 11/06/21 05:44 11/06/21 05:44 11/06/21 05:44 11/06/21 05:44 11/06/21 05:44 11/06/21 05:44 Oxygen Flow Rate (L/min) 2 Oxygen Delivery Method Nasal Cannula Weight: 115.2 kg Body Mass Index (BMI) 34.4 Intake & Output: Intake and Output for Last 24 Hours 11/04/21 11/05/21 11/06/21 23:59 23:59 23:59 Intake Total 3391.67 / 3631.67 5810.00 / 5810.00 1000 / 1000 Balance 3391.67 / 3631.67 5810.00 / 5810.00 1000 / 1000 Lab / Micro Data Result Diagrams: 11/06/21 05:53 11/06/21 05:53 Labs: Laboratory Results - last 24 hr 11/06/21 05:53: WBC 20.3 H, RBC 4.20 L, Hgb 12.7 L, Hct 38.9 L, MCV 92.6, MCH 30.2, MCHC 32.6, RDW Std Deviation 50.9 H, RDW Coeff of Shauna 15.0 H, Plt Count 221, MPV 9.8, Immature Gran % (Auto) 1.000 H, Neut % (Auto) 79.1 H, Lymph % (Auto) 11.5 L, Barnes % (Auto) 8.2, Eos % (Auto) 0.0, Baso % (Auto) 0.2, Absolute Neuts (auto) 16.1 H, Absolute Lymphs (auto) 2.33, Nucleated RBC % 0, Differential Comment SCANNED, Diff Path Review June11/06/21 05:53: Sodium 140, Potassium 4.0, Chloride 112 H, Carbon Dioxide 23.0, Anion Gap 5, BUN 14, Creatinine 0.72, Estim Creat Clear Calc 67.90, Est GFR (MDRD) Af Amer 137, Est GFR (MDRD) Non-Af 113, BUN/Creatinine Ratio 19.6, Glucose 100, Calcium 8.1 L Radiography Diagnostic Testing: Radiology Impression Cholangiogram 11/05/21 08:55 IMPRESSION: Biliary stent is seen in the common bile duct. Electronically Signed: Avelino Friend MD at 9:42 EDT , Physical Exam Const alert and no apparent distress Resp normal respiratory effort, no retractions, no use of accessory muscles and clear to auscultation bilaterally Cardio regular rate, regular rhythm, S1 normal heart sound and S2 normal heart sound GI GI Narrative: Distended. Hyperactive bowel sounds Extremity General Extremity: edema bilateral upper extremity trace and lower extremity Details: trace Neuro oriented x3 Assessment & Plan Assessment/Plan (1) Gallstone pancreatitis: PLAN: Gallstone pancreatitis-gallbladder ultrasound at outside facility with gallbladder thickening and sludge. Alk phos 150. Lipase at outside hospital greater than 20,000. Now 215. Bilirubin 2.5, now up to 7.1 General surgery consult. ERCP 11/04:Complete removal was accomplished by biliary sphincterotomy and balloon extraction. A biliary sphincterotomy was performed. The biliary tree was swept.Common bile duct was successfully dilated. One temporary stent was placed into the common bile duct. Advance diet per general surgery Add incentive spirometer (2) Acute cholecystitis: PLAN: on piperacillin/tazobactam general surgery consult cholecystectomy 11/05 with removal of hepatic mass (sent to pathology) (3) HTN (hypertension): PLAN: started on lisiopril 20 on 11/05 still elevated Would not aggressively lower given recent surgery and discomfort as his BP may drop when the acute distress resolves. PLAN: Plan chronic conditions: * GERD- on omeprazole. DVT prophylaxis- Heparin sc Charges/Coding Visit Charges Inpatient E&M: 59329 Subs Hosp L2
--- NOTE | 2021-11-06 08:22 | PN.SURG_ITS ---
Subjective Subjective Patient reports tolerating clears. No nausea or vomiting. Pain is well controlled. Objective Data Objective Data Vital Signs: Vital Signs Temp Pulse Resp BP Pulse Ox O2 Del Method O2 Flow Rate 98.7 F 78 16 162/77 H 96 Nasal Cannula 2 11/06/21 05:44 11/06/21 05:44 11/06/21 05:44 11/06/21 05:44 11/06/21 05:44 11/06/21 05:44 11/06/21 05:44 Oxygen Flow Rate (L/min) 2 Oxygen Delivery Method Nasal Cannula Weight: 253 lb 15.56 oz Body Mass Index (BMI) 34.4 Intake & Output: Intake and Output for Last 24 Hours 11/04/21 11/05/21 11/06/21 23:59 23:59 23:59 Intake Total 3391.67 / 3631.67 5810.00 / 5810.00 1999 Balance 3391.67 / 3631.67 5810.00 / 5810.00 1999 Lab / Micro Data Result Diagrams: 11/06/21 05:53 11/06/21 05:53 Labs: Laboratory Results - last 24 hr 11/06/21 05:53: WBC 20.3 H, RBC 4.20 L, Hgb 12.7 L, Hct 38.9 L, MCV 92.6, MCH 30.2, MCHC 32.6, RDW Std Deviation 50.9 H, RDW Coeff of Shauna 15.0 H, Plt Count 221, MPV 9.8, Immature Gran % (Auto) 1.000 H, Neut % (Auto) 79.1 H, Lymph % (Auto) 11.5 L, [place] % (Auto) 8.2, Eos % (Auto) 0.0, Baso % (Auto) 0.2, Absolute Neuts (auto) 16.1 H, Absolute Lymphs (auto) 2.33, Nucleated RBC % 0, Differen tial Comment SCANNED, Diff Path Review May 11/06/21 05:53: Sodium 140, Potassium 4.0, Chloride 112 H, Carbon Dioxide 23.0, Anion Gap 5, BUN 14, Creatinine 0.72, Estim Creat Clear Calc 67.90, Est GFR (MDRD) Af Amer 137, Est GFR (MDRD) Non-Af 113, BUN/Creatinine Ratio 19.6, Glucose 100, Calcium 8.1 L Radiography Diagnostic Testing: Radiology Impression Cholangiogram 11/05/21 08:55 IMPRESSION: Biliary stent is seen in the common bile duct. Electronically Signed: Avelino Friend MD at 9:42 EDT , Physical Exam Const oriented x3 GI soft to palpation Palpation: tender Assessment & Plan Assessment/Plan (1) Gallstone pancreatitis: (2) Acute cholecystitis: PLAN: Plan The patient tolerated clears and I will advance him to a regular diet. His white count did rise to 20 today which is a little worrisome and I would probably recommend waiting on discharge until tomorrow. Patient had a small mass adjacent to the gallbladder which was also removed and pathology is pending. Roderick Amado MD Pager: [facility] [address] [place] [address] [address] [place] [address] Office:
[2021-11-06 09:44] VITALS: BP 174/86; PULSE 85; RESP 18; TEMP 37.7; O2SAT 92
[2021-11-06] MEDS: Lisinopril 20 MG Tablet PO (10:19)
[2021-11-06] MEDS: Heparin Injection (Vial) 5,000 UNIT/ML VIAL 5000 UNIT SC ×2 (10:20→21:33)
[2021-11-06] MEDS: Morphine 2 MG/ML Syringe IV (10:26)
[2021-11-06] MEDS: oxyCODONE 5 MG Tablet PO (10:58)
[2021-11-06] MEDS: 0.9% Saline Lock 10 ML Syringe IV (10:59)
[2021-11-06 14:56] VITALS: BP 169/84; PULSE 82; RESP 18; TEMP 36.9; O2SAT 98
[2021-11-06] MEDS: Acetaminophen 325 MG Tablet 650 MG PO (15:07)
[2021-11-06 20:35] VITALS: BP 175/85; PULSE 76; RESP 18; TEMP 36.8; O2SAT 96
--- NOTE | 2021-11-06 21:15 | RAD_ITS ---
EXAM: XR CHEST, 2 VIEWS CLINICAL INDICATION: sob TECHNIQUE: Frontal and lateral views of the chest. This report was created using [employer] report generation technology. COMPARISON: 11/01/2021. FINDINGS: LUNGS AND PLEURAL SPACES: Discoid atelectasis at the lower lungs bilaterally. Bilateral small pleural effusions with adjacent passive atelectasis. No pneumothorax. HEART: Unremarkable. Cardiac silhouette not enlarged. MEDIASTINUM: No other definite mediastinal abnormalities. BONES/JOINTS: Degenerative changes of the spine and acromioclavicular joints bilaterally. SOFT TISSUES: Unremarkable. LYMPH NODES: Fullness of the right hilar region may represent reactive adenopathy. RAD/Chest PA and Lateral IMPRESSION: Small pleural effusions bilaterally with adjacent passive atelectasis. Electronically Signed: Too Rodriguez MD at 22:29 EDT ,
[2021-11-06 21:33] LABS: BNP,B-Type NATRIURETIC PEPTIDE 208.8 pg/mL (0-100)
[2021-11-06 21:55] VITALS: BP 175/85; PULSE 76; RESP 18; TEMP 36.8; O2SAT 96
--- NOTE | 2021-11-06 22:48 | PCM.PN.BLA ---
Progress Note Lasix 40mg IVP x1 for edema and pleural effusion.
[2021-11-06] MEDS: Furosemide 40 MG/4 ML Vial IV (22:55)
[2021-11-07] VITALS (7 sets, daily range): BP systolic 123–167; BP diastolic 68–76; PULSE 64–94; RESP 16–18; TEMP 36.6–37.3; O2SAT 93–95
[2021-11-07] MEDS: hydrALAZINE 20 MG/ML Vial 5 MG IV (06:16)
[2021-11-07] MEDS: 0.9% Saline Lock 10 ML Syringe IV (06:17)
[2021-11-07 06:30] LABS: Absolute Lymphocyte Count 3.22 X10^3/uL (0.83-4.51); Absolute Neutrophil Count 11.2 X10^3/uL (2.0-7.7); Basophil# 0.06 X10^3/uL; Basophil% 0.4 % (0-1); Eosinophil# 0.14 X10^3/uL; Eosinophils% 0.8 % (0-5); Hematocrit 39.4 % (40-54); Hemoglobin 13.3 g/dL (13.0-16.5); Lymphocyte # 3.22 X10^3/ul (0.83-4.51); Lymphocyte % 19.5 % (19-41); Mean Corp Hgb Conc 33.8 g/dL (32-36); Mean Corpuscular Hgb 30.9 pg (27.0-32.0); Mean Corpuscular Volume 91.4 fL (80-94); Mean Platelet Vol. 9.9 fl (6.2-12.0); Monocyte# 1.76 X10^3/uL; Monocyte% 10.7 % (0-10); NRBC Flagged by Analyzer 0 % (0-5); Neutrophil # 11.23 X10^3/uL (2.7-7.7); Neutrophil % 67.9 % (47-70); POSITIVE DIFFERENTIAL YES; Platelet Count 218 K/mm3 (150-450); RBC Distribution Width CV 14.8 % (11.6-14.6); RBC Distribution Width SD 50.2 fl (35.1-43.9); Red Blood Count 4.31 M/mm3 (4.6-6.2); White Blood Count 16.5 K/mm3 (4.4-11.0)
[2021-11-07 06:34] LABS: Differential Indicated SCAN CRITERIA MET
[2021-11-07 06:54] LABS: Differential Comment SCANNED
[2021-11-07 06:59] LABS: ALB/GLOB Ratio 0.7 RATIO (0.9-2.4); AST(SGOT) 62 U/L (15-37); Alanine Aminotransfer ALT/SGPT 94 U/L (16-61); Albumin, Serum 2.5 g/dL (3.2-5.0); Alkaline Phosphatase 192 U/L (45-117); Anion Gap 8 (5-15); BUN 13 mg/dL (7-18); BUN/Creat Ratio 15.1 RATIO (10-20); Calcium,Total 8.2 mg/dL (8.5-10.1); Chloride 106 mmol/L (98-107); Creatinine, Serum 0.86 mg/dL (0.70-1.30); EST Glomerular Filtration Rate 91 mL/min (>60); Est Glom Filt Rate - Afr Amer 111 mL/min (>60); Estimated Creatinine Clearance 78.95 ml/min; Globulin 3.6 g/dL (2.2-4.2); Glucose 90 mg/dL (74-106); Potassium 3.2 mmol/L (3.5-5.1); Protein, Total 6.1 g/dL (6.4-8.2); Sodium Level 139 mmol/L (136-145)
--- NOTE | 2021-11-07 07:09 | PN.SURG_ITS ---
Subjective Subjective Patient reports tolerating regular diet and passing flatus. Denies abdominal pain. Objective Data Objective Data Vital Signs: Vital Signs Temp Pulse Resp BP Pulse Ox O2 Del Method O2 Flow Rate 97.9 F 78 16 167/74 H 95 Room Air 2 11/07/21 06:00 11/07/21 06:16 11/07/21 06:00 11/07/21 06:16 11/07/21 06:00 11/07/21 06:00 11/07/21 03:05 Oxygen Flow Rate (L/min) 2 Oxygen Delivery Method Room Air Weight: 253 lb 15.56 oz Body Mass Index (BMI) 34.4 Intake & Output: Intake and Output for Last 24 Hours 11/05/21 11/06/21 11/07/21 23:59 23:59 23:59 Intake Total 5810.00 / 5810.00 3240.00 / 3540.00 500 / 500 Output Total 2300 / 2300 Balance 5810.00 / 5810.00 3240.00 / 2340.00 -1800 / -1800 Lab / Micro Data Result Diagrams: 11/07/21 06:00 11/07/21 06:00 Labs: Laboratory Results - last 24 hr 11/06/21 05:53: B-Natriuretic Peptide 208.8 H 11/07/21 06:00: WBC 16.5 H, RBC 4.31 L, Hgb 13.3, Hct 39.4 L, MCV 91.4, MCH 30.9, MCHC 33.8, RDW Std Deviation 50.2 H, RDW Coeff of Shauna 14.8 H, Plt Count 218, MPV 9.9, Immature Gran % (Auto) 0.700, Neut % (Auto) 67.9, Lymph % (Auto) 19.5, [place] % (Auto) 10.7 H, Eos % (Auto) 0.8, Baso % (Auto) 0.4, Absolute Neuts (auto) 11.2 H, Absolute Lymphs (auto) 3.22, Nucleated RBC % 0, Differential Comment SCANNED, Diff Path Review June11/07/21 06:00: Sodium 139, Potassium 3.2 L, Chloride 106, Carbon Dioxide 25.0, Anion Gap 8, BUN 13, Creatinine 0.86, Estim Creat Clear Calc 78.95, Est GFR (MDRD) Af Amer 111, Est GFR (MDRD) Non-Af 91, BUN/Creatinine Ratio 15.1, Glucose 90, Calcium 8.2 L, Total Bilirubin 4.00 H, AST 62 H, ALT 94 H, Alkaline Phosphatase 192 H, Total Protein 6.1 L, Albumin 2.5 L, Globulin 3.6, Albumin/Globulin Ratio 0.7 L Radiography Diagnostic Testing: Radiology Impression Chest X-Ray 11/06/21 21:15 IMPRESSION: Small pleural effusions bilaterally with adjacent passive atelectasis. Electronically Signed: Too Rodriguez MD at 22:29 EDT , Assessment & Plan Assessment/Plan (1) Acute cholecystitis: PLAN: Patient seems to be doing well. His white count is coming down and his left shift has resolved. His LFTs are slowly improving. I believe the patient is okay for discharge. Patient will follow-up with me in 2 weeks. DC instructions have been filled out. Roderick Amado MD Pager: [facility] [address] [place] [address], [address] [place] [address] Office:
--- NOTE | 2021-11-07 08:41 | PCM.PROGNOTE ---
Subjective Subjective Patient underwent laparoscopic cholecystectomy and a hard mass was seen on laparoscopic evaluation near the gallbladder fossa. He does not have any abdominal pain. Objective Data Objective Data Vital Signs: Vital Signs Temp Pulse Resp BP Pulse Ox O2 Del Method O2 Flow Rate 97.9 F 78 16 167/74 H 95 Room Air 2 11/07/21 06:00 11/07/21 06:16 11/07/21 06:00 11/07/21 06:16 11/07/21 06:00 11/07/21 06:00 11/07/21 03:05 Oxygen Flow Rate (L/min) 2 Oxygen Delivery Method Room Air Weight: 253 lb 15.56 oz Body Mass Index (BMI) 34.4 Intake & Output: Intake and Output for Last 24 Hours 11/05/21 11/06/21 11/07/21 23:59 23:59 23:59 Intake Total 5810.00 / 5810.00 3240.00 / 3540.00 500 / 500 Output Total 2300 / 2300 Balance 5810.00 / 5810.00 3240.00 / 2340.00 -1800 / -1800 Lab / Micro Data Result Diagrams: 11/07/21 06:00 11/07/21 06:00 Labs: Laboratory Results - last 24 hr 11/06/21 05:53: B-Natriuretic Peptide 208.8 H 11/07/21 06:00: WBC 16.5 H, RBC 4.31 L, Hgb 13.3, Hct 39.4 L, MCV 91.4, MCH 30.9, MCHC 33.8, RDW Std Deviation 50.2 H, RDW Coeff of Shauna 14.8 H, Plt Count 218, MPV 9.9, Immature Gran % (Auto) 0.700, Neut % (Auto) 67.9, Lymph % (Auto) 19.5, [place] % (Auto) 10.7 H, Eos % (Auto) 0.8, Baso % (Auto) 0.4, Absolute Neuts (auto) 11.2 H, Absolute Lymphs (auto) 3.22, Nucleated RBC % 0, Differential Comment SCANNED, Diff Path Review June11/07/21 06:00: Sodium 139, Potassium 3.2 L, Chloride 106, Carbon Dioxide 25.0, Anion Gap 8, BUN 13, Creatinine 0.86, Estim Creat Clear Calc 78.95, Est GFR (MDRD) Af Amer 111, Est GFR (MDRD) Non-Af 91, BUN/Creatinine Ratio 15.1, Glucose 90, Calcium 8.2 L, Total Bilirubin 4.00 H, AST 62 H, ALT 94 H, Alkaline Phosphatase 192 H, Total Protein 6.1 L, Albumin 2.5 L, Globulin 3.6, Albumin/Globulin Ratio 0.7 L Radiography Diagnostic Testing: Radiology Impression Chest X-Ray 11/06/21 21:15 IMPRESSION: Small pleural effusions bilaterally with adjacent passive atelectasis. Electronically Signed: Too Rodriguez MD at 22:29 EDT , Physical Exam Const oriented x3 GI soft to palpation Palpation: tender Assessment & Plan Assessment/Plan (1) Gallstone pancreatitis: PLAN: Gallstone pancreatitis resolved status post ERCP with debris removal. (2) Jaundice: PLAN: Jaundice likely secondary to extrinsic compression of the common bile duct. He is status post ERCP with stent placement. His LFTs are improving as is his white blood cell count. He will need to follow-up in the clinic for stent removal or exchange in the future. Charges/Coding Visit Charges Inpatient E&M: 10768 Subs Hosp L2
--- NOTE | 2021-11-07 09:19 | PCM.PN.HOSP ---
Subjective Subjective Feels well. Tolerating diet. Positive flatus. No shortness of breath. Objective Data Objective Data Vital Signs: Vital Signs Temp Pulse Resp BP Pulse Ox O2 Del Method O2 Flow Rate 36.6 C 78 16 167/74 H 95 Room Air 2 11/07/21 06:00 11/07/21 06:16 11/07/21 06:00 11/07/21 06:16 11/07/21 06:00 11/07/21 06:00 11/07/21 03:05 Oxygen Flow Rate (L/min) 2 Oxygen Delivery Method Room Air Weight: 115.2 kg Body Mass Index (BMI) 34.4 Intake & Output: Intake and Output for Last 24 Hours 11/05/21 11/06/21 11/07/21 23:59 23:59 23:59 Intake Total 5810.00 / 5810.00 3240.00 / 3540.00 500 / 500 Output Total 2300 / 2300 Balance 5810.00 / 5810.00 3240.00 / 2340.00 -1800 / -1800 Lab / Micro Data Result Diagrams: 11/07/21 06:00 11/07/21 06:00 Labs: Laboratory Results - last 24 hr 11/06/21 05:53: B-Natriuretic Peptide 208.8 H 11/07/21 06:00: WBC 16.5 H, RBC 4.31 L, Hgb 13.3, Hct 39.4 L, MCV 91.4, MCH 30.9, MCHC 33.8, RDW Std Deviation 50.2 H, RDW Coeff of Shauna 14.8 H, Plt Count 218, MPV 9.9, Immature Gran % (Auto) 0.700, Neut % (Auto) 67.9, Lymph % (Auto) 19.5, [place] % (Auto) 10.7 H, Eos % (Auto) 0.8, Baso % (Auto) 0.4, Absolute Neuts (auto) 11.2 H, Absolute Lymphs (auto) 3.22, Nucleated RBC % 0, Differential Comment SCANNED, Diff Path Review June11/07/21 06:00: Sodium 139, Potassium 3.2 L, Chloride 106, Carbon Dioxide 25.0, Anion Gap 8, BUN 13, Creatinine 0.86, Estim Creat Clear Calc 78.95, Est GFR (MDRD) Af Amer 111, Est GFR (MDRD) Non-Af 91, BUN/Creatinine Ratio 15.1, Glucose 90, Calcium 8.2 L, Total Bilirubin 4.00 H, AST 62 H, ALT 94 H, Alkaline Phosphatase 192 H, Total Protein 6.1 L, Albumin 2.5 L, Globulin 3.6, Albumin/Globulin Ratio 0.7 L Radiography Diagnostic Testing: Radiology Impression Chest X-Ray 11/06/21 21:15 IMPRESSION: Small pleural effusions bilaterally with adjacent passive atelectasis. Electronically Signed: Too Rodriguez MD at 22:29 EDT , Physical Exam Resp normal respiratory effort, no retractions, no use of accessory muscles and clear to auscultation bilaterally Cardio regular rate, regular rhythm, S1 normal heart sound and S2 normal heart sound GI GI Narrative: Distended. Nontender Auscultation: hyperactive bowel sounds Extremity General Extremity: edema bilateral upper extremity trace and lower extremity Details: trace Assessment & Plan Assessment/Plan (1) Gallstone pancreatitis: PLAN: Gallstone pancreatitis-gallbladder ultrasound at outside facility with gallbladder thickening and sludge. Alk phos 150. Lipase at outside hospital greater than 20,000. Now 215. Bilirubin 2.5, now up to 7.1 General surgery consult. ERCP 11/04:Complete removal was accomplished by biliary sphincterotomy and balloon extraction. A biliary sphincterotomy was performed. The biliary tree was swept.Common bile duct was successfully dilated. One temporary stent was placed into the common bile duct. Advance diet per general surgery Add incentive spirometer Follow up with GI for stent removeal (2) Acute cholecystitis: PLAN: general surgery consult cholecystectomy 11/05 with removal of hepatic mass (sent to pathology) Follow up with general surgery (3) HTN (hypertension): PLAN: started on lisiopril 20 on 11/05 still elevated Would not aggressively lower given recent surgery and discomfort as his BP may drop when the acute distress resolves. PLAN: Plan chronic conditions: GERD- on omeprazole. Discharge home
[2021-11-07] MEDS: Lisinopril 20 MG Tablet PO (10:04)
[2021-11-07] MEDS: Heparin Injection (Vial) 5,000 UNIT/ML VIAL 5000 UNIT SC (10:04)
--- NOTE | 2021-11-07 10:23 | DCINST_ITS ---
Discharge Instructions Diet Discharge Diet: Light diet - advance as tolerated Dressing / Incision Call your doctor if your incision/area has: Continuous Slow Oozing, Sudden Increased Bleeding, Increased Pain/ Swelling, Increased Redness, Foul Smelling Discharge and Swelling at the incision site Call your doctor if you observe: Fever of 101 or Higher Cleanse incision/area with: Soap & Water Follow Up Care Please Follow Up With: Roderick Amado MD Test Results: Test results from this visit will be discussed in further detail at your follow- up appointment, if applicable. Discharge Plan Admission Admit Date/Time: 11/03/21 15:22 Primary Reason for Your Visit: pancreatitis. cholecystitis Attending Provider: hPilip Steven Primary Care Provider: Je Elaine Consulting Providers: Roderick Amado ; Keyur Azevedo Discharge Orders/Prescriptions Prescriptions: New lisinopril 20 mg Tablet 20 mg PO DAILY Qty: 30 0RF oxycodone 5 mg Tablet 5 mg PO Q6H PRN PRN (Reason: Pain Score 4-10) 3 Days Qty: 12 0RF acetaminophen 500 mg capsule 1,000 mg PO Q6H PRN (Reason: pain) Qty: 20 0RF Referrals / Follow Up: Roderick Amado MD [Med Staff - Active Staff] - Within 2 Weeks Renny Roberts DO [Med Staff - Active Staff] - Within 3 Months Je Elaine MD [Primary Care Provider] - Within 2 Weeks Disposition Disposition (needs filled in before D/C Order can be placed): Home, Self Care
--- NOTE | 2021-11-07 10:29 | PCM.DC.SUM ---
Providers Date of Admission: 11/03/21 Primary Care Physician: Dr. Je Elaine MD Consultations 11/03/21 15:46 Consult: General Surgery Routine Consulting Provider: Roderick Amado Reason for Consult: Gallstone pancreatitis EMERGENT Consult: No Notified: Yes Date Notified: 11/03/21 Time Notified: 15:25 Method of Notification: Verbal 11/04/21 08:05 Consult: Gastroenterology Routine Consulting Provider: [facility] Reason for Consult: ERCP EMERGENT Consult: No Notified: Yes Date Notified: 11/04/21 Time Notified: 08:05 Method of Notification: Verbal Reason For Visit: GALLSTONES/PANCREATITIS Diagnosis Discharge Diagnosis (1) Gallstone pancreatitis: Status: Acute Code(s): K85.10 - Biliary acute pancreatitis without necrosis or infection Plan: Gallstone pancreatitis-gallbladder ultrasound at outside facility with gallbladder thickening and sludge. Alk phos 150. Lipase at outside hospital greater than 20,000. Now 215. Bilirubin 2.5, now up to 7.1 General surgery consult. ERCP 11/04:Complete removal was accomplished by biliary sphincterotomy and balloon extraction. A biliary sphincterotomy was performed. The biliary tree was swept.Common bile duct was successfully dilated. One temporary stent was placed into the common bile duct. Advance diet per general surgery Add incentive spirometer Follow up with GI for stent removeal (2) Acute cholecystitis: Status: Acute Code(s): K81.0 - Acute cholecystitis Plan: general surgery consult cholecystectomy 11/05 with removal of hepatic mass (sent to pathology) Follow up with general surgery (3) HTN (hypertension): Status: Chronic Code(s): I10 - Essential (primary) hypertension Plan: started on lisiopril 20 on 11/05 still elevated Would not aggressively lower given recent surgery and discomfort as his BP may drop when the acute distress resolves. Plan chronic conditions: GERD- on omeprazole. Discharge home Medications at Discharge Home Medications acetaminophen 500 mg capsule 1,000 mg PO Q6H PRN pain #20 caps 11/07/21 lisinopril 20 mg tablet 20 mg PO DAILY #30 tabs 11/07/21 oxycodone 5 mg tablet 5 mg PO Q6H PRN PRN Pain Score 4-10 3 days #12 tabs 11/07/21 Hospital Course Operations cholecystecomy and ERCP Procedures None Summary of Care Provided Minutes Spent on Discharge: 32 Weight / BMI Weight Weight: 115.2 kg Body Mass Index (BMI) 34.4 ABG / Lab / Microbiology Data Result Diagrams: 11/07/21 06:00 11/07/21 06:00 Laboratory: Laboratory Results - last 24 hr 11/06/21 05:53: B-Natriuretic Peptide 208.8 H 11/07/21 06:00: WBC 16.5 H, RBC 4.31 L, Hgb 13.3, Hct 39.4 L, MCV 91.4, MCH 30.9, MCHC 33.8, RDW Std Deviation 50.2 H, RDW Coeff of Shauna 14.8 H, Plt Count 218, MPV 9.9, Immature Gran % (Auto) 0.700, Neut % (Auto) 67.9, Lymph % (Auto) 19.5, [place] % (Auto) 10.7 H, Eos % (Auto) 0.8, Baso % (Auto) 0.4, Absolute Neuts (auto) 11.2 H, Absolute Lymphs (auto) 3.22, Nucleated RBC % 0, Differential Comment SCANNED, Diff Path Review June foll 11/07/21 06:00: Sodium 139, Potassium 3.2 L, Chloride 106, Carbon Dioxide 25.0, Anion Gap 8, BUN 13, Creatinine 0.86, Estim Creat Clear Calc 78.95, Est GFR (MDRD) Af Amer 111, Est GFR (MDRD) Non-Af 91, BUN/Creatinine Ratio 15.1, Glucose 90, Calcium 8.2 L, Total Bilirubin 4.00 H, AST 62 H, ALT 94 H, Alkaline Phosphatase 192 H, Total Protein 6.1 L, Albumin 2.5 L, Globulin 3.6, Albumin/Globulin Ratio 0.7 L Radiography Diagnostic Testing: Radiology Impression Chest X-Ray 11/06/21 21:15 IMPRESSION: Small pleural effusions bilaterally with adjacent passive atelectasis. Electronically Signed: Too Rodriguez MD at 22:29 EDT , D/C Instructions Discharge Diet: Light diet - advance as tolerated Call your doctor if your incision/area has: Continuous Slow Oozing, Sudden Increased Bleeding, Increased Pain/ Swelling, Increased Redness, Foul Smelling Discharge and Swelling at the incision site Call your doctor if you observe: Fever of 101 or Higher Cleanse incision/area with: Soap & Water Please Follow Up With: Roderick Amado MD When: Please call to schedule 2 week follow up appointment. [phone] Meaningful Use Info Meaningful Use Diagnoses (Choose all that apply): None applicable Discharge Plan Admission Admit Date/Time: 11/03/21 15:22 Primary Reason for Your Visit: pancreatitis. cholecystitis Attending Provider: Philip Steven Primary Care Provider: Je Elaine Consulting Providers: Roderick Amado ; Keyur Azevedo Discharge Orders/Prescriptions Prescriptions: New lisinopril 20 mg Tablet 20 mg PO DAILY Qty: 30 0RF oxycodone 5 mg Tablet 5 mg PO Q6H PRN PRN (Reason: Pain Score 4-10) 3 Days Qty: 12 0RF acetaminophen 500 mg capsule 1,000 mg PO Q6H PRN (Reason: pain) Qty: 20 0RF Referrals / Follow Up: Roderick Amado MD [Med Staff - Active Staff] - Within 2 Weeks Renny Roberts DO [Med Staff - Active Staff] - Within 3 Months Je Elaine MD [Primary Care Provider] - Within 2 Weeks Disposition Disposition (needs filled in before D/C Order can be placed): Home, Self Care Charges/Coding Visit Charges Inpatient E&M: 78868 Disch Hosp
[2021-11-08 13:17] LABS: Pathologist Review Reviewed
[2021-11-08 13:20] LABS: Pathologist Review Reviewed
== END 2021-11-07 13:04 | disposition home or self-care (01) | DRG 418 ==
PROVIDERS: Anesthesiology; Hospitalist; Internal Medicine Gastroenterology; Nurse Practitioner Family; Surgery; Admitting Provider Internal Medicine; PCP Internal Medicine Infectious Disease
PROC: 0FC98ZZ Extirpation of Matter from Common Bile Duct, Via Natural or Artificial Opening Endoscopic (ICD-10-PCS; CPT 43260; principal; 2021-11-04 16:25)
PROC: 0FT44ZZ Resection of Gallbladder, Percutaneous Endoscopic Approach (ICD-10-PCS; CPT 47610; principal; 2021-11-05 08:45)
DX: K85.10 Biliary acute pancreatitis without necrosis or infection (principal); K80.42 Calculus of bile duct with acute cholecystitis without obstruction; K83.8 Other specified diseases of biliary tract; K21.9 Gastro-esophageal reflux disease without esophagitis; K57.10 Diverticulosis of small intestine without perforation or abscess without bleeding; I10 Essential (primary) hypertension; R16.0 Hepatomegaly, not elsewhere classified; R06.02 Shortness of breath
CPT/HCPCS: 36415; 71046; 74300; 74328; 76000; 80048; 80053; 83690; 83880; 85025; 85730; 88304; 88307; 88311; 93005; J7030; A4216; J1940; J2405

== ENCOUNTER 2022-05-10 12:02 | Day surgery (SDC) | payer MEDICARE, SELFPAY ==
--- NOTE | 2022-05-10 | IMM_PTH ---
PATIENT: MAURILIO GOTTI LOC: EN U#:[id number] AGE/SX: 76/M ROOM: RE05/10/[address]: Dr. Renny Roberts DO : 1945 BED: DIS: 05/10/2022 SPEC #: [id number] RECD: 05/12/22 13:33 STATUS: MARTINA REJack #: [id number] MERVAT: 05/10/22 00:[address]: Renny Roberts DEPT: IMMUNOHISTOCHEMISTRY RECD BY: Roxanne Ervin ENTERED: 05/12/22 13:34 SP TYPE: IMMUNO OTHR DR: Dr. Je Elaine MD Tissues: Esophagus, NOS Procedures: P53 (initial) KI-67 (add) PHYSICIAN & [place] [id number] SPECIMEN INFORMATION: Tissue Source: Distal esophagus Clinical Info: Bile duct stricture Specimen Number: [id number] CPT code: 56696, 03893 METHODOLOGY: Deparaffinized sections of prefer/formalin-fixed tissue or PAP/DQ stained slides are incubated with monoclonal/polyclonal antibodies/oligonucleotide probes. Localization is made via biotin free immunoperoxidase method. Appropriate controls are performed and reacted as expected. Results on target cell population are indicated in the following table: RESULTS: ANTIBODY / CLONE RESULT P53 (DO-7) wild-type pattern Ki-67 (30-9) positive, low These tests were developed and their performance characteristics determined by [facility]. They may not have been cleared or approved by the U.S. Food and Drug Administration. The FDA has determined that such clearance or approval is not necessary. The above immunohistochemical/dualISH markers are ordered and reviewed by the Pathologist. INTERPRETATION: Distal esophagus, biopsy: No evidence of dysplasia. AM:kaiden 05/13/2022
--- NOTE | 2022-05-10 12:30 | RAD_ITS ---
CLINICAL HISTORY: Male, 76 years old. Pain. Stent removal. PROCEDURE: ERCP FLUOROSCOPY TIME (if supplied): (1 minute 8 seconds) TECHNIQUE: Fluoroscopic guidance was provided during the performance of an ERCP. A total of 10 procedural images were presented for interpretation. Initial study demonstrates endoscope in the duodenum. There is an indwelling biliary stent. Subsequent images demonstrate cannulization of the bile duct and injection of contrast material. The biliary stent is no longer visualized. The images demonstrate normal diameter of bile duct with questionable filling defect suggestively. There is a small area of narrowing at the junction of the intra and extrahepatic ducts of approximately 40%. Subsequent images demonstrate balloon sweeping of the bile duct. The area of narrowing described above is no longer seen. No filling defects are seen in the subsequent images was free passage of contrast into the duodenum. Please refer to the procedural report for further details. RAD/ERCP Biliary Only IMPRESSION: Fluoroscopy provided during an ERCP. Electronically Signed: Jurgen Kim DO at 16:20 EDT ,
[2022-05-10 12:36] VITALS: BP 171/92; PULSE 68; RESP 18; TEMP 36.6; O2SAT 97; BMI 33.9
[2022-05-10] MEDS: Lactated Ringers 1,000 ML 15 ML IV (12:45)
--- NOTE | 2022-05-10 13:30 | ESO_PTH ---
PATIENT: MAURILIO GOTTI LOC: EN U#:[id number] AGE/SX: 76/M ROOM: RE05/10/[address]: Dr. Renny Roberts DO : 1945 BED: DIS: 05/10/2022 SPEC #: [id number] RECD: 05/10/22 17:01 STATUS: MARTINA PHUONG #: [id number] MERVAT: 05/10/22 13:[address]: Renny Roberts DEPT: SURGICAL PATHOLOGY RECD BY: Maria Teresa Wolff ENTERED: 05/11/22 08:23 SP TYPE: CHARLETTE ISAACS DR: Dr. Je Elaine MD Tissues: Esophagus, NOS Procedures: Special Stain Group II Surgery Specimen Level IV Alcian Blue/PAS (control) HEADER OPERATION: ERCP, stent removal PRE-OP DIAGNOSIS: Bile duct stricture TISSUE SUBMITTED: Distal esophagus biopsy MICROSCOPIC DIAGNOSIS Distal esophagus, biopsy: Gastroesophageal junctional mucosa with mild chronic inflammation. 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 No evidence of dysplasia. See comment. AM:kaiden 05/12/2022 COMMENT Alcian blue/PAS stain with matched control supports the above diagnosis. Immunohistochemistry ([id number]) for P53 and Ki-67 will be performed and results will be reported separately. MICROSCOPIC DESCRIPTION Slides are reviewed. GROSS DESCRIPTION Received in fixative is one container labeled with the patient's name and designated distal esophagus biopsy. The specimen consists of multiple irregular fragments of light khan soft tissue that in aggregate measure 1.0 x 0.3 x 0.1 cm. The specimen is totally submitted in one cassette. / SJ:kaiden 05/11/2022 TC:3 CPT: 58554, 86298
--- NOTE | 2022-05-10 14:00 | HP.PCM_ITS ---
History and Physical Date of Admission: 05/10/22 BOLA GOTTI, is a 76 M who presents to the office today for Follow up. Bola established with this clinic through [facility] hospitalization -11.07.21 as an admission from [facility] for abdominal pain and nausea. GI consulted 11.04.21 with ERCP performed same day for gallstone pancreatitis. ?ERCP 11.04.21?noting non-bleeding duodenal diverticulum; biliary stricture of lower third of main bile duct, indeterminate of nature; choledocholithiasis with removal via biliary sphincterotomy and balloon; temporary stent placed in CBD. ?Cholecystectomy 11.05.21?noting hepatic mass medial to gallbladder fossa without communication to gallbladder ? 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 Feels he has been doing very well since discharge home without are return of symptoms or new symptoms. No medication prescribed by this clinic. ROS Const Constitutional: No anorexia, fatigue, fever(s), weight change or sleep problems Eyes Eyes: No change in vision ENT ENT: No abnormal hearing, difficulty swallowing, mouth lesions, tongue swelling or throat swelling Resp Respiratory: No cough or shortness of breath Cardio Cardiology: No chest pain at rest, chest pain with exertion, shortness of breath or dyspnea on exertion Gastro GI: No difficulty swallowing Genitourinary Male: No difficulty urinating or burning urination Musc Musculoskeletal: No joint pain, joint swelling, muscle weakness or decreased muscle mass Skin Skin: No hair loss in leg, yellowing of the eye, itchy eyes, rash, skin ulcer or skin swelling Neuro Neurology: No abnormal hearing, abnormal movements, confusion, unsteady gait/balance or memory loss Psych Psychiatric: No anxiety, No confusion and No memory loss Endo Endocrine: No fatigue or weight change Aller/Imm Allergy/Immunologic: No itchy eyes, throat swelling or tongue swelling Imke/Lymp Hematologic/Lymphatic: No easy bleeding, easy bruising or enlarged lymph nodes Exam Const General: cooperative and comfortable Nutritional Appearance: average body habitus and well nourished HENMO Head: normal to inspection Ears: hearing grossly normal bilaterally Nose: external nose normal Face and sinus: normal facial exam Mouth: oral mucosae normal Throat: posterior oropharynx normal Eyes General: appearance normal, both eyes and all related structures Neck Neck: normal visual inspection Chest Chest palpation & inspection: normal inspection of the chest and normal palpation of entire chest wall Resp Effort & Inspection: normal respiratory effort Auscultation: Bilateral: Clear to Auscultation Cardio Palpation: normal PMI Rate: regular rate Rhythm: regular rhythm GI Inspection: normal to inspection Auscultation: normal bowel sounds Percussion: normal to percussion Palpation: no hepatosplenomegaly Skin General: no rashes or lesions noted Neuro General: patient alert Extrem General: normal to inspection Psych Affect: normal affect Quality Reporting Tobacco Screening ([facility] 138) Smoking Status: Never smoker Assessment and Plan Assessment and Plan (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 He underwent ERCP with sphincterotomy, balloon dilation and brushings of that area.? He also had a CA 19-9 which was normal at a level of 3.? After which temporary 10 x 9 cm plastic stent was placed up into the right hepatic lobe.? He underwent elective cholecystectomy.? He had a fibrous nodule that was present at junction of the esha hepatis and cystic duct takeoff.? It was a benign fibrous nodule.? The gross specimen from his cholecystectomy showed chronic cholecystitis.? He is not have any abdominal pain at this time.? He is not have any nausea.? He is not having any chest pain or shortness of breath.? He has not taken any medicines on a daily basis.? We will get a repeat CT scan of abdomen pelvis year, repeat his CA 19-9 and we will schedule him for a stent removal. I have examined the patient and the H&P has been reviewed. There are no clinical changes since date of exam.
--- NOTE | 2022-05-10 15:04 | OP.ERCP_ITS ---
Patient Name: Bola Small Procedure Date: 05/10/2022 2:33 PM Date of : 1945 Age: 76 Procedure: ERCP Indications: Common bile duct stone(s), Biliary stent removal Providers: Renny Roberts DO Medicines: Monitored Anesthesia Care Patient Profile: This is a 76 year old male. Refer to note in patient chart for documentation of history and physical. Patient has symptoms. Complications: No immediate complications. Procedure: Pre-Anesthesia Assessment: - Prior to the procedure, a History and Physical was performed, and patient medications and allergies were reviewed. The patient is competent. The risks and benefits of the procedure and the sedation options and risks were discussed with the patient. All questions were answered and informed consent was obtained. Patient identification and proposed procedure were verified by the physician in the pre-procedure area. Mental Status Examination: alert and oriented. Airway Examination: normal oropharyngeal airway and neck mobility. Respiratory Examination: clear to auscultation. CV Examination: normal. Prophylactic Antibiotics: The patient does not require prophylactic antibiotics. Prior Anticoagulants: The patient has taken no previous anticoagulant or antiplatelet agents. ASA Grade Assessment: II - A patient with mild systemic disease. After reviewing the risks and benefits, the patient was deemed in satisfactory condition to undergo the procedure. The anesthesia plan was to use general anesthesia. Immediately prior to administration of medications, the patient was re-assessed for adequacy to receive sedatives. The heart rate, respiratory rate, oxygen saturations, blood pressure, adequacy of pulmonary ventilation, and response to care were monitored throughout the procedure. The physical status of the patient was re-assessed after the procedure. After obtaining informed consent, the scope was passed under direct vision. Throughout the procedure, the patient's blood pressure, pulse, and oxygen saturations were monitored continuously. The Duodenoscope was introduced through the mouth, and advanced to the duodenum and used to inject contrast into the bile duct. The ERCP was accomplished without difficulty. The patient tolerated the procedure well. Scope In: 2:42:13 PM Scope Out: 2:55:19 PM Total Procedure Duration Time 0 hours 13 minutes 6 seconds Findings: The forklift material handler film was normal. The esophagus was successfully intubated under direct vision. The scope was advanced to a normal major papilla in the descending duodenum without detailed examination of the pharynx, larynx and associated structures, and upper GI tract. The upper GI tract was grossly normal. The bile duct was deeply cannulated with the short-nosed traction sphincterotome. Contrast was injected. I personally interpreted the bile duct images. There was brisk flow of contrast through the ducts. Image quality was excellent. Contrast extended to the entire biliary tree. Opacification of the entire biliary tree except for the cystic duct and gallbladder was successful. The maximum diameter of the ducts was 10 mm. A straight Roadrunner wire was passed into the biliary tree. A 5 mm biliary sphincterotomy was made with a traction (standard) sphincterotome using ERBE electrocautery. The sphincterotomy oozed blood. The biliary tree was swept with a 12 mm balloon starting at the bifurcation. Sludge was swept from the duct. All stones were removed. Dilation of the common bile duct with a 6-7-8 mm balloon (to a maximum balloon size of 8 mm) dilator was successful. One stent was removed from the biliary tree using a snare. The stent was found to be occluded via the water column test. The upper GI tract was traversed under direct vision without detailed examination. The esophagus and gastroesophageal junction were examined with white light. There were esophageal mucosal changes suspicious for short-segment Del Rosario's esophagus. These changes involved the mucosa at the upper extent of the gastric folds (38 cm from the incisors) extending to the Z-line (41 cm from the incisors). Firth-colored mucosa was present. The maximum longitudinal extent of these esophageal mucosal changes was 3 cm in length. Biopsy was performed in the lower third of the esophagus through the ERCP scope with a cold large-capacity forceps for histology. The biliary tree was swept with a 15 mm balloon starting at the bifurcation. All stones were removed. 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 - Biopsy was performed in the lower third of the esophagus. - Choledocholithiasis was found. Complete removal was accomplished by biliary sphincterotomy and balloon extraction. - A biliary sphincterotomy was performed. - The biliary tree was swept. - Common bile duct was successfully dilated. - One stent was removed from the biliary tree. - The biliary tree was swept. Procedure Code(s): --- Professional --- 94388, 59, Endoscopic retrograde cholangiopancreatography (ERCP); with trans-endoscopic balloon dilation of biliary/pancreatic duct(s) or of ampulla (sphincteroplasty), including sphincterotomy, when performed, each duct 36510, 51, Endoscopic retrograde cholangiopancreatography (ERCP); with removal of foreign body(s) or stent(s) from biliary/pancreatic duct(s) 74811, Endoscopic retrograde cholangiopancreatography (ERCP); with removal of calculi/debris from biliary/pancreatic duct(s) 94546, 59, Endoscopic retrograde cholangiopancreatography (ERCP); with biopsy, single or multiple 46930, 26, Endoscopic catheterization of the biliary ductal system, radiological supervision and interpretation CPT copyright 2017 [employer]. All rights reserved. The codes documented in this report are preliminary and upon synthetic staple extruder review may be revised to meet current compliance requirements. Renny Rboerts DO 05/10/2022 3:04:07 PM This report has been signed electronically. Number of Addenda: 0 Note Initiated On: 05/10/2022 2:33 PM
--- NOTE | 2022-05-10 15:05 | OP.CCLET_ITS ---
05/10/2022 [address] [place] [address] Re : ERCP procedure for Bola Small Dear Dr. Elaine This procedure was performed on Tuesday, May 10, 2022. 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 - Biopsy was performed in the lower third of the esophagus. - Choledocholithiasis was found. Complete removal was accomplished by biliary sphincterotomy and balloon extraction. - A biliary sphincterotomy was performed. - The biliary tree was swept. - Common bile duct was successfully dilated. - One stent was removed from the biliary tree. - The biliary tree was swept. Recommendations : My findings are described in the full procedure note, which is enclosed. If I can be of further assistance, please feel free to contact me at . Sincerely, Renny Roberts, 05/10/2022 3:04:07 PM This report has been signed electronically.
[2022-05-10 15:10] VITALS: BP 162/95; BP 171/92; PULSE 78; RESP 16; TEMP 36.3; O2SAT 92
[2022-05-10 15:15] VITALS: BP 160/88; BP 171/92; PULSE 78; RESP 16; O2SAT 92
[2022-05-10 15:30] VITALS: BP 148/95; BP 171/92; PULSE 83; RESP 16; O2SAT 95
[2022-05-10 15:42] VITALS: BP 148/89; BP 171/92; PULSE 85; RESP 16; TEMP 36.4; O2SAT 95
[2022-05-10 16:12] VITALS: BP 171/92
== END 2022-05-10 16:17 | disposition home or self-care (01) ==
LOC: EN 12:04 → AC 12:08
PROVIDERS: PCP Internal Medicine Infectious Disease; Referring Provider Internal Medicine Infectious Disease; Visit Provider Internal Medicine Gastroenterology
PROC: (CPT 43260; principal; 2022-05-10 13:10)
DX: Z46.59 Encounter for fitting and adjustment of other gastrointestinal appliance and device (principal); K80.50 Calculus of bile duct without cholangitis or cholecystitis without obstruction; T85.590A Other mechanical complication of bile duct prosthesis, initial encounter; Z90.49 Acquired absence of other specified parts of digestive tract; K22.70 Barrett's esophagus without dysplasia; Z87.19 Personal history of other diseases of the digestive system; Y83.8 Other surgical procedures as the cause of abnormal reaction of the patient, or of later complication, without mention of misadventure at the time of the procedure
CPT/HCPCS: 43261; 43275; 43264; 43262; 00732; 74328; 76000; 88305; 88313; 88341; 88342; J7120; J2405

== ENCOUNTER 2023-10-17 12:17 | Day surgery (SDC) | payer MEDICARE, SELFPAY ==
[2023-10-17] VITALS (8 sets, daily range): BP systolic 146–182; BP diastolic 80–88; PULSE 52–67; RESP 16–20; TEMP 36.2–36.7; O2SAT 93–98; BMI 33.7
[2023-10-17] MEDS: Lactated Ringers 1,000 ML 15 ML IV (12:53)
--- NOTE | 2023-10-17 13:40 | PCM.PRE.AN2 ---
ASA Classification* ASA Classification ASA Classification: 2 Assessment & Plan Anesthesia* Anesthesia Assessment Anesthesia Assessment: Discussed sedation and/or anesthesia options, risks, benefits, and alternatives with patient/parents/legal guardian/POA. Questions invited. The patient/parents/legal guardian/POA seems to understand and agrees to proceed with anesthesia plan. Reviewed the physical assessment, medical history, allergy history and patient home medications list prior to surgery/procedure/anesthetic and documented any changes. Performed airway and anesthesia risk assessments. Anesthesia Type Anesthesia Type: MAC History Source History Obtained from:: Patient and Chart Anesthesia Focused Assessment* Temperature: 98.1 F Pulse Rate: 67 Blood Pressure: 179/82 Respiratory Rate: 18 Pulse Ox: 98 Oxygen Delivery Method: Room Air Airway Assessment Mouth opens: >3 cm Mallampati Score: I Teeth Condition: Intact Neck Range of motion (ROM): Full ROM Focused Labs Anesthesia Preop lab: CBC WBC 16.5 K/mm3 (4.4-11.0) H 11/07/21 06:00 RBC 4.31 M/mm3 (4.6-6.2) L 11/07/21 06:00 Hgb 13.3 g/dL (13.0-16.5) 11/07/21 06:00 Hct 39.4 % (40-54) L 11/07/21 06:00 Plt Count 218 K/mm3 (150-450) 11/07/21 06:00 CHEMISTRY Potassium 3.2 mmol/L (3.5-5.1) L 11/07/21 06:00 Sodium 139 mmol/L (136-145) 11/07/21 06:00 BUN 13 mg/dL (7-18) 11/07/21 06:00 Creatinine 0.86 mg/dL (0.70-1.30) 11/07/21 06:00 Glucose 90 mg/dL (74-106) 11/07/21 06:00 COAG Pre-Assessment Diagnosis/Proposed Procedure Planned Operative Procedure(s): EGD Anesthesia History 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 When Was Last Pacemaker Check QUESTION #4 FULL TEXT: You/Your Family Experience fever (hyperthermia) with Anesthesia Last Oral Intake Last Oral intake: Last Oral Intake NPO since 20:00 10/17/23 12:50 Meds taken in AM with sips of No 10/17/23 12:50 water? Meds patient instructed to take am of surgery PONV PONV - dormitory supervisor: PONV - dormitory supervisor Female No 10/11/23 14:38 HX of Motion Sickness No 10/11/23 14:38 HX of N/V After Surgery No 10/11/23 14:38 Non-Smoker Yes 10/11/23 14:38 Duration of Surgery greater No 10/11/23 14:38 than 60 minutes Number of Risk Factors 1 10/11/23 14:38 PONV Score Low Risk 10/11/23 14:38 Height & Weight Height & Weight: Anesthesia: Height & Weight Height 6 ft 10/17/23 12:50 Weight: 113 kg 10/17/23 12:50 Body Mass Index (BMI) 33.7 10/17/23 12:50 Respiratory Assessment Respiratory Assessment - dormitory supervisor: Respiratory Tract Infection Hx - dormitory supervisor Hx Respiratory Tract Infection No 10/11/23 14:38 STOP Sleep Apnea STOP Sleep Apnea - dormitory supervisor: STOP Sleep Apnea - dormitory supervisor Hx Hypertension No: NO LONGER MEDICATED 10/11/23 14:38 Hx Sleep Apnea No 10/11/23 14:38 CPAP BIPAP Do you snore loudly (louder No 10/11/23 14:38 than talking or can be heard Do you often feel tired/ No 10/11/23 14:38 fatigued/ sleepy during daytime? Has anyone observed you stop No 10/11/23 14:38 breathing during sleep? STOP Results Negative 10/11/23 14:38 QUESTION #5 FULL TEXT : Do you snore loudly (louder than talking or can be heard through closed doors)? Tobacco Use History Tobacco Use History - dormitory supervisor: Tobacco Use History - dormitory supervisor Tobacco Use Smoking Status Never smoker 10/11/23 14:38 Hx Tobacco Use No 10/11/23 14:38 Years Smoking Packs Smoked per Day Smoking Cessation Date was within the last 15 years Hx Smoking Cessation Date Hx Smoking Cessation Counseling Hematologic Medial History Hematologic Hx - dormitory supervisor: Hematologic Medical Hx - bolt header Hx of Blood Transfusion No 10/11/23 14:38 Hx of Transfusion in last 3 No 10/11/23 14:38 Months Date of Last Transfusion (if within last 3 months) Ever experience any problems No 10/11/23 14:38 with transfusion(s)? Specify any problems Hx of Preganancy in last 3 N/A 10/11/23 14:38 Months Nurse Filling Out Transfusion NBUCHER 10/11/23 14:38 & Questions: Date: 10/11/23 10/11/23 14:38 Time: 14:41 10/11/23 14:38 Patient unable to answer at this time (ie. confused, unrespo /Reproduction History /Reproductive History - dormitory supervisor: /Reproductive Hx- dormitory supervisor Hx Now Gestational Age (in weeks): EDC: Hx Hx Para Hx Section SAB No 10/11/23 14:38 Active Medications Active Medications: Current Medications Generic Name Dose Route Start Last Admin Trade Name Freq PRN Reason Stop Dose Admin Lactated Ringer's 1,000 mls @ 15 mls/hr 10/17/23 12:45 10/17/23 12:53 IV 15 mls/hr .Q48H SANTINO Administration PFSH Medical History Arthritis GERD (gastroesophageal reflux disease) History of stress test Non-smoker Wears glasses Wears hearing aid Home Medications ?Medication ?Instructions ?Recorded ?Last Taken ?Type pantoprazole 40 mg tablet,delayed 40 mg PO DAILY #30 tabs 12/12/22 10/16/23 Rx release Allergy/AdvReac Type Severity Reaction Status Date / Time No Known Allergies Allergy Verified 10/17/23 12:50 Family History Mother Cancer Father Cancer Surgical History History of cholecystectomy History of colonoscopy Previous back surgery Social History household members: spouse Smoking Status: Never smoker alcohol intake: never substance use type: does not use Review of Systems (Anesthesia) ROS Narrative System reviewed and no additional complaints, except as documented.
--- NOTE | 2023-10-17 13:45 | EGD_PTH ---
PATIENT: MAURILIO GOTTI LOC: [facility] U#:[id number] AGE/SX: 78/M ROOM: RE10/17/[address]: Dr. Renny Roberts DO : 1945 BED: DIS: 10/17/2023 SPEC #: [id number] RECD: 10/17/23 18:12 STATUS: MARTINA PHUONG #: [id number] MERVAT: 10/17/23 13:[address]: Renny Roberts DEPT: SURGICAL PATHOLOGY RECD BY: Destiney Kaur ENTERED: 10/18/23 11:47 SP TYPE: EGD BIOPSY FERNY DR: Dr. Je Elaine MD Tissues: Esophagus, NOS Procedures: Special Stain Group I Surgery Specimen Level IV Alcian Blue/PAS (control) HEADER OPERATION: EGD with biopsy PRE-OP DIAGNOSIS: Bile duct stricture, choledocholithiasis, Del Rosario's esophagus TISSUE SUBMITTED: Distal esophagus biopsy MICROSCOPIC DIAGNOSIS Distal esophagus, biopsy: Gastroesophageal junction mucosa with chronic inflammation. No evidence of goblet cell metaplasia. See comment. Gene 10/19/2023 COMMENT Alcian blue/PAS stain with matched control is used in the evaluation of the specimen. MICROSCOPIC DESCRIPTION Slides are reviewed. GROSS DESCRIPTION Received in fixative is one container labeled with the patient's name and designated Distal esophagus biopsy. The specimen consists of multiple irregular fragments of light khan soft tissue that in aggregate measure 1.5 x 0.4 x 0.1 cm. The specimen is totally submitted in one cassette. 10/18/2023 TC:3 CPT:30237,55853
--- NOTE | 2023-10-17 14:41 | HP.PCM_ITS ---
History and Physical Date of Admission: 10/17/23 78 M who presents to the office today for follow up. *[facility] hospitalization 2-11.07.21 as an admission from [facility] for abdominal pain and nausea. GI consulted 11.04.21 with ERCP performed same day for gallstone pancreatitis.? ERCP 11.04.21?noting non-bleeding duodenal diverticulum; biliary stricture of lower third of main bile duct, indeterminate of nature; choledocholithiasis with removal via biliary sphincterotomy and balloon; temporary stent placed in C BD.?Cholecystectomy 11.05.21?noting hepatic mass medial to gallbladder fossa without communication to gallbladder? 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 OV 02.08. Feels he has been doing very well since discharge home without are return of symptoms or new symptoms. No medication prescribed by this clinic. ? ERCP 05.10.22?mucosal changes consistent with Del Rosario?s, P53 wild-type and K67+; choledocholithiasis, biliary sphincterotomy and balloon extraction; biliary tree swept; CBD dilated; one stent removed from biliary tree.? OV 10.10.23 Pt doing well since last visit. Does not have any abdominal pain or nausea. No issues with heartburn as long as he takes Pantoprazole. Bowels are on the looser side but is going consistently. OV 8.13.24 pt reports that he is feeling well overall and denies GI symptoms of concern at this time. Continues with pantoprazole. ROS Const Constitutional: No fatigue, fever(s) or weight change ENT ENT: No difficulty swallowing Gastro GI: No abdominal pain, belching, bloating, change in bowel habits, change in stool character, coffee ground emesis, constipation, cramping, diarrhea, hear tburn, difficulty swallowing, feeling full early, excessive flatus, incontinent of stools, Vomiting blood/hematemesis, Blood in stool, loose stools, Black,tarry stools, nausea/dyspepsia, pain with swallowing, vomiting or other Musc Musculoskeletal: Positive for joint pain, numbness, tingling and Arthritis Skin Skin: No yellowing of the eye or itchy eyes Neuro Neurology: Positive for numbness and tingling Psych Psychiatric: No anxiety and No depression Endo Endocrine: No fatigue or weight change Aller/Imm Allergy/Immunologic: No itchy eyes Mike/Lymp Hematologic/Lymphatic: No easy bleeding or easy bruising Exam Const General: cooperative and comfortable Nutritional Appearance: average body habitus and well nourished [facility] Head: normal to inspection Ears: hearing grossly normal bilaterally Nose: external nose normal Face and sinus: normal facial exam Mouth: oral mucosae normal Throat: posterior oropharynx normal Eyes General: appearance normal, both eyes and all related structures Neck Neck: normal visual inspection Chest Chest palpation & inspection: normal inspection of the chest and normal palpation of entire chest wall Resp Effort & Inspection: normal respiratory effort Auscultation: Bilateral: Clear to Auscultation Cardio Palpation: normal PMI Rate: regular rate Rhythm: regular rhythm GI Inspection: normal to inspection Auscultation: normal bowel sounds Percussion: normal to percussion Palpation: no hepatosplenomegaly Skin General: no rashes or lesions noted Neuro General: patient alert Extrem General: normal to inspection Psych Affect: normal affect Assessment and Plan Assessment and Plan (1) Bile duct stricture: Status: Chronic Plan: Patient underwent repeat ERCP with stent removal. He also had a retained stone that was removed. He is not having any abdominal pain. The stricture was dilated. He had very good flow that was seen on cholangiogram. (2) Choledocholithiasis: Status: Acute Plan: We discussed him going on ursodiol therapy. However we will see how he this clinically. As long as he does not have any more recurrences taking these to be on a chronic medicine to prevent recurrent biliary stones at this time. (3) Barretts esophagus: Status: Acute Plan: Del Rosario's esophagus was seen with this scope on upper endoscopy. He had biopsie s of his distal esophagus and it did show intestinal metaplasia without dysplasia. He was Ki-67 positive. We will perform a surveillance endoscopy and continue him on medical therapy for gastroesophageal reflux disease with pantoprazole once daily. I have examined the patient and the H&P has been reviewed. There are no clinical changes since date of exam.
--- NOTE | 2023-10-17 14:58 | PCM.POST.ANE ---
Anesthesia: Postop Eval I Current Vital Signs Temperature: 97.1 F Pulse Rate: 64 Blood Pressure: 152/82 Respiratory Rate: 20 Pulse Ox: 94 Oxygen Delivery Method: Room Air Assessment Airway patent: Yes Spontaneous unlabored respirations: Yes Mental status: Awake and Calm nausea: No Vomiting: No Anesthesia Complication: No Fluid Hydration Crystalloid volume administer (ml): 500 Total IV fluid infused: 500 Progress Note Anesthesia document: Postop Eval 1 completed: Yes
--- NOTE | 2023-10-17 15:00 | OP.CCLET_ITS ---
10/17/2023 [address] [place] [address] Re : Upper GI endoscopy procedure for Bola Small Dear Dr. Elaine This procedure was performed on Tuesday, October 17, 2023. My impressions and recommendations are as follows: Impressions : - Esophageal mucosal changes secondary to established long-segment Del Rosario's disease. Biopsied. - No gross lesions in the entire stomach. - No gross lesions in the first portion of the duodenum. Recommendations : - Discharge patient to home. - Resume previous diet. - Continue present medications. - Await pathology results. My findings are described in the full procedure note, which is enclosed. If I can be of further assistance, please feel free to contact me at . Sincerely, Renny Roberts, 10/17/2023 2:59:31 PM This report has been signed electronically.
--- NOTE | 2023-10-17 15:00 | OP.EGD_ITS ---
Patient Name: Bola Small Procedure Date: 10/17/2023 2:38 PM Date of : 1945 Age: 78 Procedure: Upper GI endoscopy Indications: Del Rosario's esophagus Providers: Renny Roberts DO Medicines: Monitored Anesthesia Care Patient Profile: This is a 78 year old male. Refer to note in patient chart for documentation of history and physical. Patient has symptoms. Complications: No immediate complications. Procedure: Pre-Anesthesia Assessment: - Prior to the procedure, a History and Physical was performed, and patient medications and allergies were reviewed. The patient is competent. The risks and benefits of the procedure and the sedation options and risks were discussed with the patient. All questions were answered and informed consent was obtained. Patient identification and proposed procedure were verified by the physician in the pre-procedure area. Mental Status Examination: alert and oriented. Airway Examination: normal oropharyngeal airway and neck mobility. Respiratory Examination: clear to auscultation. CV Examination: normal. Prophylactic Antibiotics: The patient does not require prophylactic antibiotics. Prior Anticoagulants: The patient has taken no anticoagulant or antiplatelet agents. ASA Grade Assessment: II - A patient with mild systemic disease. After reviewing the risks and benefits, the patient was deemed in satisfactory condition to undergo the procedure. The anesthesia plan was to use monitored anesthesia care (MAC). Immediately prior to administration of medications, the patient was re-assessed for adequacy to receive sedatives. The heart rate, respiratory rate, oxygen saturations, blood pressure, adequacy of pulmonary ventilation, and response to care were monitored throughout the procedure. The physical status of the patient was re-assessed after the procedure. After obtaining informed consent, the endoscope was passed under direct vision. Throughout the procedure, the patient's blood pressure, pulse, and oxygen saturations were monitored continuously. The Endoscope was introduced through the mouth, and advanced to the second part of duodenum. The upper GI endoscopy was accomplished without difficulty. The patient tolerated the procedure well. Scope In: 2:45:42 PM Scope Out: 2:50:08 PM Total Procedure Duration Time 0 hours 4 minutes 26 seconds Findings: The esophagus and gastroesophageal junction were examined with white light and narrow band imaging (NBI) from a forward view and retroflexed position. 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 These changes involved the mucosa at the upper extent of the gastric folds (35 cm from the incisors) extending to the Z-line (39 cm from the incisors). Circumferential salmon-colored mucosa was present at 40 cm, scattered islands of salmon-colored mucosa were present at 38 cm and no visible abnormalities were present. The maximum longitudinal extent of these esophageal mucosal changes was 4 cm in length. Mucosa was biopsied with a cold forceps for histology in 4 quadrants at intervals of 1 cm in the lower third of the esophagus. One specimen bottle was sent to pathology. Verification of patient identification for the specimen was done. Estimated blood loss was minimal. No gross lesions were noted in the entire examined stomach. No gross lesions were noted in the first portion of the duodenum. 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 Biopsied. - No gross lesions in the entire stomach. - No gross lesions in the first portion of the duodenum. Recommendation: - Discharge patient to home. - Resume previous diet. - Continue present medications. - Await pathology results. Procedure Code(s): --- Professional --- 58622, Esophagogastroduodenoscopy, flexible, transoral; with biopsy, single or multiple CPT copyright 2021 [employer]. All rights reserved. The codes documented in this report are preliminary and upon crystal finisher review may be revised to meet current compliance requirements. Renny Roberts DO 10/17/2023 2:59:31 PM This report has been signed electronically. Number of Addenda: 0 Note Initiated On: 10/17/2023 2:38 PM
--- NOTE | 2023-10-17 16:07 | POSTOPAN2_ITS ---
Anesthesia Postop Eval I Sum Postop Eval Completion status Anesthesia document: Postop Eval 1 completed: Yes Anesthesia Postop Eval I Summary Anesthesia Postop Eval I Summary: Anesthesia Postop Eval I: Assessment Summary Airway patent Yes 10/17/23 14:59 [email or web address] Spontaneous unlabored Yes 10/17/23 14:59 [email or web address] respirations Mental status Awake,Calm 10/17/23 14:59 [email or web address] nausea No 10/17/23 14:59 [email or web address] Vomiting No 10/17/23 14:59 [email or web address] Anesthesia Postop Eval I: Fluid Summary Crystalloid volume administer 500 10/17/23 14:59 [email or web address] (ml) Colloids volume administered ( ml) Blood Product volume administered (ml) Total IV fluid infused 500 10/17/23 14:59 [email or web address] Anesthesia Postop Eval I: Summary Notes Anesthesia Complication No 10/17/23 14:59 [email or web address] Anesthesia Complication Comment: Post-operative progress note Anesthesia: Postop Eval II Evaluation Mental status: Awake and Calm Pain Level: 0 nausea: No Vomiting: No Complications Anesthesia Complication: No
--- NOTE | 2023-10-17 16:07 | PCM.POSTANE2 ---
Anesthesia Postop Eval I Sum Postop Eval Completion status Anesthesia document: Postop Eval 1 completed: Yes Anesthesia Postop Eval I Summary Anesthesia Postop Eval I Summary: Anesthesia Postop Eval I: Assessment Summary Airway patent Yes 10/17/23 14:59 [email or web address] Spontaneous unlabored Yes 10/17/23 14:59 [email or web address] respirations Mental status Awake,Calm 10/17/23 14:59 [email or web address] nausea No 10/17/23 14:59 [email or web address] Vomiting No 10/17/23 14:59 [email or web address] Anesthesia Postop Eval I: Fluid Summary Crystalloid volume administer 500 10/17/23 14:59 [email or web address] (ml) Colloids volume administered ( ml) Blood Product volume administered (ml) Total IV fluid infused 500 10/17/23 14:59 [email or web address] Anesthesia Postop Eval I: Summary Notes Anesthesia Complication No 10/17/23 14:59 [email or web address] Anesthesia Complication Comment: Post-operative progress note Anesthesia: Postop Eval II Evaluation Mental status: Awake and Calm Pain Level: 0 nausea: No Vomiting: No Complications Anesthesia Complication: No
== END 2023-10-17 15:54 | disposition home or self-care (01) ==
LOC: EN 12:20 → AC 12:23
PROVIDERS: PCP Internal Medicine Infectious Disease; Referring Provider Internal Medicine Infectious Disease; Visit Provider Internal Medicine Gastroenterology
PROC: 0DJ08ZZ Inspection of Upper Intestinal Tract, Via Natural or Artificial Opening Endoscopic (ICD-10-PCS; CPT 43235; principal; 2023-10-17 13:40)
DX: K21.00 Gastro-esophageal reflux disease with esophagitis, without bleeding (principal); K22.70 Barrett's esophagus without dysplasia; Z90.49 Acquired absence of other specified parts of digestive tract; Z79.899 Other long term (current) drug therapy
CPT/HCPCS: 43239; 88305; 88312; J7120; J2405